=== PATIENT | male | born 1965 | race Caucasian/White ===

== ENCOUNTER 2017-05-25 09:49 | Observation (INO) | payer OTHER ==
--- NOTE | 2017-05-25 10:33 | ED PDOC ---
HPI: Chest Pain Time Seen by Provider: 05/25/17 10:02 Chief Complaint (Nursing): Chest Pain Chief Complaint (Provider): Chest pain History Per: Patient History/Exam Limitations: no limitations Onset/Duration Of Symptoms: Hrs Additional Complaint(s): Patient is a 51 y/o male with a past medical history of hypertension, hypercholesterolemia, and coronary artery disease presenting to the emergency department for sudden chest pain with associated shortness of breath, nausea, and dizziness while riding on a bus several hours prior to arrival. Patient believes that he might have also passed out briefly. Denies other complaints. Of note, patient's sister reports that he is not always compliant with his medication, which includes Plavix and Aspirin. PCP: meryl Valencia ([place]) and [facility] Past Medical History Reviewed: Historical Data, Nursing Documentation, Vital Signs Vital Signs: Last Vital Signs Temp 97.6 F 05/25/17 11:56 Pulse 63 05/25/17 11:56 Resp 16 05/25/17 11:56 BP 114/72 05/25/17 11:56 Pulse Ox 100 05/25/17 11:58 - Medical History PMH: CAD, HTN, Hypercholesterolemia - Surgical History Surgical History: No Surg Hx - Family History Family History: States: Unknown Family Hx - Social History Current smoker - smoking cessation education provided: Yes (less than 10 cigarettes per day) Ex-Smoker (has not smoked in the last 12 months): No Alcohol: None Drugs: Denies - Home Medications Home Medications: Ambulatory Orders Medication Instructions Recorded Aspirin [Ecotrin] 81 mg PO DAILY 05/25/17 Clopidogrel [Plavix] 75 mg PO DAILY 05/25/17 HCTZ/Losartan Potassium [Hyzaar 1 tab PO DAILY 05/25/17 12.5 mg-50 mg] Isosorbide Mononitrate ER [Imdur 30 mg PO DAILY 05/25/17 ER] Metoprolol Succinate [Toprol XL] 50 mg PO HS 05/25/17 Naproxen [Naprosyn] 500 mg PO Q12H PRN 05/25/17 Nitroglycerin [Nitrostat] 0.4 mg SL Q5MIN PRN 05/25/17 Simvastatin [Zocor] 40 mg PO HS 05/25/17 - Allergies Allergies/Adverse Reactions: Allergies Allergy/AdvReac Type Severity Reaction Status Date / Time No Known Allergies Allergy Verified 05/25/17 10:02 Review of Systems ROS Statement: Except As Marked, All Systems Reviewed And Found Negative Cardiovascular: Positive for: Chest Pain Respiratory: Positive for: Shortness of Breath Gastrointestinal: Positive for: Nausea Neurological: Positive for: Dizziness Physical Exam - Reviewed Nursing Documentation Reviewed: Yes Vital Signs Reviewed: Yes - Physical Exam Appears: Positive for: Non-toxic, No Acute Distress. Negative for: Well Head Exam: Positive for: ATRAUMATIC, NORMAL INSPECTION, NORMOCEPHALIC Skin: Positive for: Normal Color, Warm, Dry Eye Exam: Positive for: Normal appearance, EOMI, PERRL Neck: Positive for: Normal, Painless ROM, Supple Cardiovascular/Chest: Positive for: Regular Rate, Rhythm. Negative for: Murmur Respiratory: Positive for: Normal Breath Sounds. Negative for: Accessory Muscle Use, Respiratory Distress Gastrointestinal/Abdominal: Positive for: Normal Exam, Soft. Negative for: Tenderness Extremity: Positive for: Normal ROM. Negative for: Pedal Edema Neurologic/Psych: Positive for: Alert, Oriented (x3) - Laboratory Results Result Diagrams: 05/25/17 10:10 05/25/17 10:10 - ECG O2 Sat by Pulse Oximetry: 100 (RA) Pulse Ox Interpretation: Normal Medical Decision Making Medical Decision Making: Time: 10:09 Initial impression: Chest pain, dyspnea. Differential diagnoses include but not limited to acute coronary syndrome, cardiac arrhythmia, pulmonary embolism with associated syncope. Initial plan: EKG Labs Chest X-Ray Aspirin 325 mg PO personnel monitor continued Reevaluation 10:45 Upon re-evaluation, patient has no complaints at this time. Scribe Attestation: Documented by Elif Lugo, acting as a scribe for Isaac Graves MD. Provider Scribe Attestation: All medical record entries made by the Scribe were at my direction and personally dictated by me. I have reviewed the chart and agree that the record accurately reflects my personal performance of the history, physical exam, medical decision making, and the department course for this patient. I have also personally directed, reviewed, and agree with the discharge instructions and disposition. Disposition - Clinical Impression Clinical Impression: Chest pain, Syncope - Patient ED Disposition Is Patient to be Admitted: Yes Discussed With : Willard Zelaya Doctor Will See Patient In The: ED Counseled Patient/Family Regarding: Studies Performed, Diagnosis - Disposition Disposition Time: 11:30 Condition: FAIR - Pt Status Changed To: Hospital Disposition Of: Observation - POA Present On Arrival: None Core Measure Indicators: Chest Pain
[2017-05-25 10:38] LABS: BASO # 0.1 K/uL (0.0-0.2); BASO % 0.5 % (0.0-2.0); EOS # 0.1 K/uL (0.0-0.7); EOS % 0.3 % (0.0-4.0); HEMATOCRIT 45.1 % (35.0-51.0); LYMPH # 1.2 K/uL (1.0-4.3); LYMPH % 7.2 % (20.0-40.0); MEAN CELL VOLUME 93.5 fl (80.0-94.0); MEAN CORPUSCULAR HEMOGLOBIN 31.9 pg (27.0-31.0); MEAN CORPUSCULAR HGB CONC 34.1 g/dL (33.0-37.0); MEAN PLATELET VOLUME 9.7 fl (7.2-11.7); MONO # 0.9 K/uL (0.0-0.8); MONO % 5.5 % (0.0-10.0); NEUT # 14.5 K/uL (1.8-7.0); NEUT % 86.5 % (50.0-75.0); PLATELET COUNT 251 K/uL (130-400); RED CELL DISTRIBUTION WIDTH 13.1 % (11.5-14.5); WHITE BLOOD COUNT 16.8 K/uL (4.8-10.8)
[2017-05-25 10:52] LABS: BLOOD UREA NITROGEN 21 mg/dl (9-20); CALCIUM 9.8 mg/dL (8.4-10.2); CARBON DIOXIDE 25 mmol/L (22-30); CHLORIDE 101 mmol/L (98-107); GFR AFRICAN-AMERICAN > 60; GLUCOSE,RANDOM 112 mg/dL (75-110); PARTIAL THROMBOPLASTIN TIME 25.6 Seconds (25.6-37.1); POTASSIUM 3.8 MMOL/L (3.6-5.0); SODIUM 139 mmol/l (132-148)
--- NOTE | 2017-05-25 12:30 | RAD ---
PROCEDURE: CHEST RADIOGRAPH, 1 VIEW HISTORY: Chest pain. COMPARISON: None available. FINDINGS: LUNGS: Clear. PLEURA: No pneumothorax or pleural fluid seen. CARDIOVASCULAR: No radiographic findings to suggest acute or significant cardiovascular disease. OSSEOUS STRUCTURES: No significant abnormalities. VISUALIZED UPPER ABDOMEN: Normal. OTHER FINDINGS: None. IMPRESSION: No active disease.
[2017-05-25 14:07] LABS: EOSINOPHIL 1 % (0-7); NEUTROPHIL 81 % (42-75); TOTAL CELLS COUNTED 100
[2017-05-25 16:12] LABS: ABG ALLEN TEST YES; ARTERIAL BLOOD GAS HCO3 29.5 mmol/L (21-28); ARTERIAL BLOOD GAS O2 CAPACITY 21.8 mL/dL (16-24); ARTERIAL BLOOD GAS O2 CONTENT 21.6 ML/dL (15-23); ARTERIAL BLOOD GAS PH 7.49 (7.35-7.45); ARTERIAL BLOOD GAS PO2 100 mm/Hg (80-100); ARTERIAL BLOOD HGB O2 SAT 95.3 % (95.0-98.0); CARBOXYHEMOGLOBIN 1.7 % (0.5-1.5); HHB 1.1 % (0.0-5.0); METHEMOGLOBIN 1.9 % (0.0-3.0)
[2017-05-25] MEDS: HCTZ/Losartan 12.5/50 Tab PO SCH (17:35)
[2017-05-25] MEDS: Enoxaparin 40 mg Syringe SC SCH (17:37)
[2017-05-25] MEDS ORDERED: Metoprolol Succinate 50 mg XL Tab PO SCH (22:00)
--- NOTE | 2017-05-25 22:38 | CT ---
EXAM: CT Chest Without Intravenous Contrast CLINICAL HISTORY: 51 years old, male; Pain and signs and symptoms; Shortness of breath; Chest pain; Type not specified; Additional info: SOB, wt. Loss, smoking HX TECHNIQUE: Axial computed tomography images of the chest without intravenous contrast. All CT scans at this facility use one or more dose reduction techniques, viz.: automated exposure control; ma/kV adjustment per patient size (including targeted exams where dose is matched to indication; i.e. head); or iterative reconstruction technique. Coronal and sagittal reformatted images were created and reviewed. COMPARISON: No relevant prior studies available. FINDINGS: Limitations: Lack of intravenous contrast. Lungs: Minimal atelectasis/scarring. No consolidation. Few subpleural nodules and/or scarring, up to 0.3 cm. Pleural space: No pneumothorax. No significant effusion. Heart: No cardiomegaly. No significant pericardial effusion. Bones/joints: Mild degenerative changes of spine. No acute fracture. Soft tissues: Unremarkable. Vasculature: Unremarkable. No aneurysm. Lymph nodes: No pathologically enlarged lymph nodes. IMPRESSION: 1. Pulmonary nodules. For low-risk patients, no follow-up is necessary. For high-risk patients (smoking history or other known risk factors) an optional CT at 12 months could be performed.
[2017-05-26 07:05] LABS: HEMATOCRIT 42.7 % (35.0-51.0); MEAN CELL VOLUME 93.7 fl (80.0-94.0); MEAN CORPUSCULAR HEMOGLOBIN 31.7 pg (27.0-31.0); MEAN CORPUSCULAR HGB CONC 33.8 g/dL (33.0-37.0); RED CELL DISTRIBUTION WIDTH 13.1 % (11.5-14.5); WHITE BLOOD COUNT 9.7 K/uL (4.8-10.8)
[2017-05-26 07:09] LABS: RBC URINE 3 /hpf (0-3); URINE BILIRUBIN NEGATIVE (NEGATIVE); URINE BLOOD NEGATIVE (NEGATIVE); URINE COLOR YELLOW (YELLOW); URINE GLUCOSE (UA) NEG (Normal); URINE KETONE NEGATIVE (NEGATIVE); URINE LEUKOCYTE ESTERASE NEG Leu/uL (Negative); URINE PROTEIN NEGATIVE (NEGATIVE); URINE UROBILINOGEN 0.2-1.0 mg/dL (0.2-1.0); WBC URINE 1 /hpf (0-5)
[2017-05-26 07:30] LABS: ALB/GLOB RATIO 1.6 (1.0-2.1); ALKALINE PHOSPHATASE 95 U/L (38-126); ALT/SGPT 22 U/L (21-72); AST/SGOT 17 U/L (17-59); BILIRUBIN,TOTAL 0.4 mg/dl (0.2-1.3); BLOOD UREA NITROGEN 22 mg/dl (9-20); CALCIUM 9.1 mg/dL (8.4-10.2); CARBON DIOXIDE 25 mmol/L (22-30); CHLORIDE 102 mmol/L (98-107); CHOLESTEROL 150 mg/dL (0-199); GFR AFRICAN-AMERICAN > 60; GLUCOSE,RANDOM 134 mg/dL (75-110); POTASSIUM 3.5 MMOL/L (3.6-5.0); SODIUM 139 mmol/l (132-148); TOTAL PROTEIN 6.9 G/DL (6.3-8.2)
[2017-05-26 07:54] LABS: THYROID STIMULATING HORMONE 1.11 mIU/ML (0.46-4.68)
--- NOTE | 2017-05-26 08:44 | CARD ---
APPROVED REPORT EKG Measurement Heart [id number] <Conclusion> Normal sinus rhythm Normal ECG
[2017-05-26] MEDS: HCTZ/Losartan 12.5/50 Tab PO SCH (09:03)
[2017-05-26] MEDS: Enoxaparin 40 mg Syringe SC SCH (09:03)
--- NOTE | 2017-05-26 09:39 | CP.PCM.HP ---
History of Present Illness - History of Present Illness History of Present Illness: This is a 51 y/o male with hx of CAD HTN hyperlipidemia non compliant with meds ,was admitted yesterday for sudden onset of chest pain. Claims that chest pain started few hours prior to ER visit while in a bus ride. Claims that there was SOB palpitation and possibly passed out in few seconds while in pain. Pain persisted hence sought medical attention. Initial troponin was negative. Past medical Hx CAD HTN hyperlipidemia Noncompliant with meds he was n plavix antiHTN and ASA Present on Admission - Present on Admission Any Indicators Present on Admission: No History of DVT/PE: No History of Uncontrolled Diabetes: No Urinary Catheter: No Decubitus Ulcer Present: No Review of Systems - Cardiovascular Cardiovascular: Chest Pain Past Patient History - Past Medical History & Family History Past Medical History?: Yes - Past Social History Smoking Status: Current Some Days Smoker - CARDIAC Hx Hypercholesterolemia: Yes Hx Hypertension: Yes - PULMONARY Hx Respiratory Disorders: No - NEUROLOGICAL Hx Neurological Disorder: No - HEENT Hx HEENT Problems: No Other/Comment: wears glasses - RENAL Hx Chronic Kidney Disease: No - ENDOCRINE/METABOLIC Hx Endocrine Disorders: No - HEMATOLOGICAL/ONCOLOGICAL Hx Blood Disorders: No - INTEGUMENTARY Hx Dermatological Problems: No - MUSCULOSKELETAL/RHEUMATOLOGICAL Hx Musculoskeletal Disorders: No Hx Falls: No - GASTROINTESTINAL Hx Gastrointestinal Disorders: Yes Hx Ulcer: Yes Other/Comment: gastric ulcer with surgery - GENITOURINARY/GYNECOLOGICAL Hx Genitourinary Disorders: No - PSYCHIATRIC Hx Psychophysiologic Disorder: No Hx Substance Use: No - SURGICAL HISTORY Hx Surgeries: Yes Hx Cardiac Catheterization: Yes Other/Comment: abdominal sx - ulcer cardiac cath no stents - ANESTHESIA Hx Anesthesia: Yes Hx Anesthesia Reactions: No Hx Malignant Hyperthermia: No Has any member of the family had a problem w/ anesthesia?: No Meds Allergies/Adverse Reactions: Allergies Allergy/AdvReac Type Severity Reaction Status Date / Time No Known Allergies Allergy Verified 05/25/17 10:02 Physical Exam - Head Exam Head Exam: NORMAL INSPECTION - Eye Exam Eye Exam: Normal appearance - ENT Exam ENT Exam: Mucous Membranes Moist - Respiratory Exam Respiratory Exam: NORMAL BREATHING PATTERN - Cardiovascular Exam Cardiovascular Exam: REGULAR RHYTHM - GI/Abdominal Exam GI & Abdominal Exam: Normal Bowel Sounds - Neurological Exam Neurological exam: Alert, CN II-XII Intact Results - Vital Signs Recent Vital Signs: Last Vital Signs Temp 98.0 F 05/26/17 07:45 Pulse 64 05/26/17 07:45 Resp 18 05/26/17 07:45 BP 112/67 05/26/17 07:45 Pulse Ox 96 05/26/17 07:45 - Labs Result Diagrams: 05/26/17 06:00 05/26/17 06:00 Labs: Laboratory Results - last 24 hr 05/25/17 05/25/17 05/25/17 16:00 16:35 22:49 WBC RBC Hgb Hct MCV MCH MCHC RDW Plt Count pCO2 39 pO2 100 HCO3 29.5 H ABG pH 7.49 H ABG Total CO2 30.9 H ABG O2 Saturation 98.9 H ABG O2 Content 21.6 ABG Base Excess 5.9 H ABG Hemoglobin 16.1 ABG Carboxyhemoglobin 1.7 H POC ABG HHb (Measured) 1.1 ABG Methemoglobin 1.9 ABG O2 Capacity 21.8 Mo Test Yes A-a O2 Difference 1.0 Hgb O2 Saturation 95.3 FiO2 21.0 Sodium Potassium Chloride Carbon Dioxide Anion Gap BUN Creatinine Est GFR ( Amer) Est GFR (Non-Af Amer) Random Glucose Calcium Total Bilirubin AST ALT Alkaline Phosphatase Troponin I < 0.0120 < 0.0120 Total Protein Albumin Globulin Albumin/Globulin Ratio Triglycerides Cholesterol LDL Cholesterol Direct HDL Cholesterol TSH 3rd Generation 05/26/17 05/26/17 06:00 06:00 WBC 9.7 RBC 4.56 Hgb 14.4 Hct 42.7 MCV 93.7 MCH 31.7 H MCHC 33.8 RDW 13.1 Plt Count 245 pCO2 pO2 HCO3 ABG pH ABG Total CO2 ABG O2 Saturation ABG O2 Content ABG Base Excess ABG Hemoglobin ABG Carboxyhemoglobin POC ABG HHb (Measured) ABG Methemoglobin ABG O2 Capacity Mo Test A-a O2 Difference Hgb O2 Saturation FiO2 Sodium 139 Potassium 3.5 L Chloride 102 Carbon Dioxide 25 Anion Gap 16 BUN 22 H Creatinine 0.8 Est GFR ( Amer) > 60 Est GFR (Non-Af Amer) > 60 Random Glucose 134 H Calcium 9.1 Total Bilirubin 0.4 AST 17 ALT 22 Alkaline Phosphatase 95 Troponin I Total Protein 6.9 Albumin 4.2 Globulin 2.7 Albumin/Globulin Ratio 1.6 Triglycerides 140 Cholesterol 150 LDL Cholesterol Direct 83 HDL Cholesterol 43 TSH 3rd Generation 1.11 Assessment & Plan (1) Chest pain Status: Acute (2) CAD (coronary artery disease) Status: Acute (3) Hypertension Status: Acute - Assessment and Plan (Free Text) Plan: cont meds follow up troponin if al negactive will Dc patient and advised follow up with PMD.
--- NOTE | 2017-05-26 10:22 | CARD ---
APPROVED REPORT EXAM: Two-dimensional and M-mode echocardiogram with Doppler and color Doppler. Other Information Quality : GoodRhythm : NSR INDICATION Chest Pain 2D DIMENSIONS IVSd1.29 (0.7-1.1cm)LVDd4.51 (3.9-5.9cm) LVOT Diameter2.39 (1.8-2.4cm)PWd1.02 (0.7-1.1cm) IVSs1.51 (0.8-1.2cm)LVDs3.25 (2.5-4.0cm) FS (%) 27.9 %PWs1.30 (0.8-1.2cm) M-Mode DIMENSIONS Left Atrium (MM)4.38 (2.5-4.0cm)IVSd1.32 (0.7-1.1cm) Aortic Root3.06 (2.2-3.7cm)LVDd5.06 (4.0-5.6cm) Aortic Cusp Exc.2.32 (1.5-2.0cm)PWd1.26 (0.7-1.1cm) IVSs1.53 cmFS (%) 34 % LVDs3.35 (2.0-3.8cm)PWs1.74 cm Mitral Valve MV E Lyvjwfoe51.9cm/sMV DECEL [id number] A Xobgqxfx17.2cm/s MV BWS56tnS/A ratio1.2MVA (PHT)3.70cm2 TDI Lateral E' Peak V11.24cm/sMedial E' Peak V7.17cm/sE/Lateral E'3.9 E/Medial E'6.1 Pulmonary Valve PV Peak Tchdygpq006.9cm/s Tricuspid Valve TR Peak Elqucpvy345eh/sRAP [id number] Peak Gr.16mmHg [id number] LEFT VENTRICLE The left ventricle is normal size. There is mild concentric left ventricular hypertrophy. Left ventricle systolic function is normal. The Ejection Fraction is 65-70%. There is normal LV segmental wall motion. Transmitral Doppler flow pattern is Grade I-abnormal relaxation pattern. RIGHT VENTRICLE The right ventricle is normal size. There is normal right ventricular wall thickness. The right ventricular systolic function is normal. ATRIA The left atrium size is normal. The right atrium size is normal. AORTIC VALVE The aortic valve is normal in structure and function. No aortic regurgitation is present. There is no aortic valvular stenosis. MITRAL VALVE The mitral valve is normal in structure and function. There is no evidence of mitral valve prolapse. There is no mitral valve stenosis. There is no mitral valve regurgitation noted. TRICUSPID VALVE The tricuspid valve is normal in structure. There is mild tricuspid regurgitation. Right ventricular systolic pressure is estimated at 26 mmHg. There is no pulmonary hypertension. PULMONIC VALVE The pulmonary valve is normal in structure and function. There is no pulmonic valvular regurgitation. GREAT VESSELS The aortic root is normal in size. The IVC is normal in size and collapses >50% with inspiration. PERICARDIAL EFFUSION The pericardium appears normal. <Conclusion> The left ventricle is normal size. There is mild concentric left ventricular hypertrophy. There is normal LV segmental wall motion. Left ventricle systolic function is normal. The Ejection Fraction is 65-70%. Transmitral Doppler flow pattern is Grade I-abnormal relaxation pattern.
[2017-05-26] MEDS ORDERED: Potassium Chloride 20 mEq ER Tab PO ONE (13:58)
[2017-05-26 16:27] VITALS: BP 112/61; PULSE 67; RESP 14; TEMP 98; O2SAT 96
--- NOTE | 2017-05-26 19:43 | CON ---
CARDIOLOGY CONSULTATION DATE: REASON FOR CONSULTATION: Dizziness and diaphoresis. HISTORY OF PRESENT ILLNESS: The patient is a 51-year-old Italian male who has history of hypertension presented because of recurrent episodes of dizziness and diaphoresis as well as chest tightness. The patient is being followed by policy issue clerk by the name of Dr. Valencia in [place]. The patient denies any prior cardiac history. The patient is currently chest pain free. SOCIAL HISTORY: The patient is a smoker. Currently, he switched to electronic cigarette. He is . Lives with his . MEDICATIONS: Aspirin 81 mg once a day, Hyzaar one tablet once a day, Imdur 30 mg once a day, Lovenox 20 mg subcutaneous once a day, Plavix 75 mg once a day, Toprol-XL 50 mg once a day. REVIEW OF SYSTEMS: No fever or chills. No vomiting or diarrhea. PHYSICAL EXAMINATION: GENERAL: The patient is a middle age male, who does not appear to be in any distress. VITAL SIGNS: Blood pressure 108/59, heart rate 61, temperature 98.3, respirations 18. HEENT: Normocephalic. NECK: No JVD. CHEST: Clear. HEART: Heart sounds regular. ABDOMEN: Soft. EXTREMITIES: No edema. LABORATORIES: SMA-7; sodium 139, potassium 4.5, chloride 102, CO2 of 25, glucose 134, BUN 22, and creatinine 0.8. Three sets of troponins are negative. Lipid profile is within normal limits. PT, PTT, and D-dimer are within normal limits. Hemoglobin, hematocrit, 14.4 and 42.7, white count 9.2, and platelet count 145,000. Echocardiographic study revealed mild concentric LVH with normal ejection fraction and reduced diastolic compliance. EKG revealed normal sinus rhythm. ASSESSMENT: 1. Chest pain, myocardial infarction ruled out. 2. Hypertension. 3. Mild hypokalemia. RECOMMENDATIONS: Continue current aspirin 81 mg once a day, Hyzaar 12.5-50 mg daily, Imdur 30 mg once a day, Lovenox 20 mg once a day, Plavix 75 mg once a day, Toprol-XL 50 mg once a day. I will administer K-Dur 20 mEq p.o. now. The patient can be discharged for followup with his policy issue clerk, Dr. Valencia for outpatient stress test. Ho Lynch MD [facility] # [id number]
== END 2017-05-26 17:00 | disposition home or self-care (01) ==
LOC: H.ER 09:49 → H.ERHOLD 11:30 → H.TEL 13:12
PROVIDERS: ADMIT Family Medicine; ATTEND Family Medicine
DX: R07.9 Chest pain, unspecified (principal); E78.00 Pure hypercholesterolemia, unspecified; E78.5 Hyperlipidemia, unspecified; E87.6 Hypokalemia; Z91.14 Patient's other noncompliance with medication regimen; I10 Essential (primary) hypertension; I25.10 Atherosclerotic heart disease of native coronary artery without angina pectoris; F17.210 Nicotine dependence, cigarettes, uncomplicated
CPT/HCPCS: 36415; 71010; 71250; 80048; 80053; 80061; 81003; 82803; 82948; 83880; 84443; 84484; 85025; 85027; 85378; 85610; 85730; 93005; 93306; 99285; G0378; J1650

== ENCOUNTER 2017-06-15 12:50 | Emergency (ER) | payer OTHER ==
[2017-06-15 13:28] VITALS: BP 125/74; PULSE 63; RESP 16; TEMP 97.8
[2017-06-15] MEDS ORDERED: Alum-Mag Hydrox-Simethicone Susp (30 mL) PO STA (14:46)
--- NOTE | 2017-06-15 14:49 | ED PDOC ---
HPI: Back Time Seen by Provider: 06/15/17 13:44 Chief Complaint (Nursing): Back Pain Chief Complaint (Provider): Lower back pain History Per: Patient History/Exam Limitations: no limitations Onset/Duration Of Symptoms: Hrs Current Symptoms Are (Timing): Still Present Additional Complaint(s): Patient is a 51 y/o male with a past medical history of hypertension presenting to the emergency department for acute on chronic left lower non-radiating back pain. Notes taking Motrin last night which caused stomach irritation and provided no significant relief. Denies trauma or other complaints. PCP: none provided. Past Medical History Reviewed: Historical Data Vital Signs: Last Vital Signs Temp 97.8 F 06/15/17 13:25 Pulse 63 06/15/17 13:25 Resp 16 06/15/17 13:25 BP 125/74 06/15/17 13:25 Pulse Ox 198 H 06/15/17 13:25 - Medical History PMH: CAD, HTN, Hypercholesterolemia, Hyperlipidemia Denies: Chronic Kidney Disease - Family History Family History: States: Unknown Family Hx - Home Medications Home Medications: Ambulatory Orders Medication Instructions Recorded Aspirin [Ecotrin] 81 mg PO DAILY 05/25/17 Clopidogrel [Plavix] 75 mg PO DAILY 05/25/17 HCTZ/Losartan Potassium [Hyzaar 1 tab PO DAILY 05/25/17 12.5 mg-50 mg] Isosorbide Mononitrate ER [Imdur 30 mg PO DAILY 05/25/17 ER] Metoprolol Succinate [Toprol XL] 50 mg PO HS 05/25/17 Naproxen [Naprosyn] 500 mg PO Q12H PRN 05/25/17 Nitroglycerin [Nitrostat] 0.4 mg SL Q5MIN PRN 05/25/17 Simvastatin [Zocor] 40 mg PO HS 05/25/17 Acetaminophen [Tylenol 325mg tab] 3 tab PO Q6H #60 tab 06/15/17 diaZEpam [Valium] 5 mg PO Q8H #15 tab 06/15/17 - Allergies Allergies/Adverse Reactions: Allergies Allergy/AdvReac Type Severity Reaction Status Date / Time No Known Allergies Allergy Verified 06/15/17 13:25 Review of Systems ROS Statement: Except As Marked, All Systems Reviewed And Found Negative Musculoskeletal: Positive for: Back Pain (left, lower, non-radiating, acute on chronic) Physical Exam - Reviewed Nursing Documentation Reviewed: Yes Vital Signs Reviewed: Yes - Physical Exam Appears: Positive for: Well, Non-toxic, No Acute Distress Head Exam: Positive for: ATRAUMATIC, NORMAL INSPECTION, NORMOCEPHALIC Skin: Positive for: Normal Color, Warm, Dry Eye Exam: Positive for: Normal appearance ENT: Positive for: Normal ENT Inspection Neck: Positive for: Normal Respiratory: Negative for: Respiratory Distress Back: Positive for: Normal Inspection, Decreased ROM, Muscle Spasm. Negative for: L CVA Tenderness, R CVA Tenderness, Vertebral Tenderness Extremity: Positive for: Normal ROM Neurologic/Psych: Positive for: Alert, Oriented (x3) - ECG O2 Sat by Pulse Oximetry: 98 (RA) Pulse Ox Interpretation: Normal Interpretation Of Abnormal: Time: 14:46 Initial impression: Left lower back pain Initial plan: Maalox 30 mL PO Valium 5 mg PO Toradol 60 mg IM Reevaluation Scribe Attestation: Documented by Elif Lugo, acting as a scribe for NISREEN Singh. Provider Scribe Attestation: All medical record entries made by the Scribe were at my direction and personally dictated by me. I have reviewed the chart and agree that the record accurately reflects my personal performance of the history, physical exam, medical decision making, and the department course for this patient. I have also personally directed, reviewed, and agree with the discharge instructions and disposition. Disposition - Clinical Impression Clinical Impression: Back pain - Patient ED Disposition Is Patient to be Admitted: No Counseled Patient/Family Regarding: Diagnosis, Need For Followup, Rx Given - Disposition Disposition: Routine/Home Disposition Time: 15:17 Condition: GOOD Prescriptions: Acetaminophen [Tylenol 325mg tab] 3 tab PO Q6H #60 tab diaZEpam [Valium] 5 mg PO Q8H #15 tab Instructions: Back Pain (ED) Forms: [employer] ([place])
[2017-06-15] MEDS ORDERED: Alum-Mag Hydrox-Simethicone Susp (30 mL) ONE (14:53)
[2017-06-15 15:13] VITALS: O2SAT 98
== END 2017-06-15 15:23 | disposition home or self-care (01) ==
LOC: H.ER 12:50
DX: M54.9 Dorsalgia, unspecified (principal)
CPT/HCPCS: 96372; 99281; J1885

== ENCOUNTER 2017-06-19 07:07 | Emergency (ER) | payer OTHER ==
[2017-06-19 07:13] VITALS: BP 150/82; PULSE 74; RESP 18; TEMP 98.5; O2SAT 99
[2017-06-19 07:15] VITALS: BMI 25.8
[2017-06-19] MEDS ORDERED: Sodium Chloride 0.9% 1,000 ML IV STA (07:40)
[2017-06-19 08:11] LABS: BASO # 0.1 K/uL (0.0-0.2); BASO % 0.6 % (0.0-2.0); EOS # 0.1 K/uL (0.0-0.7); EOS % 1.2 % (0.0-4.0); HEMATOCRIT 42.5 % (35.0-51.0); LYMPH # 1.4 K/uL (1.0-4.3); LYMPH % 11.6 % (20.0-40.0); MEAN CELL VOLUME 92.8 fl (80.0-94.0); MEAN CORPUSCULAR HEMOGLOBIN 31.3 pg (27.0-31.0); MEAN CORPUSCULAR HGB CONC 33.7 g/dL (33.0-37.0); MEAN PLATELET VOLUME 9.6 fl (7.2-11.7); MONO # 0.8 K/uL (0.0-0.8); MONO % 7.1 % (0.0-10.0); NEUT # 9.4 K/uL (1.8-7.0); NEUT % 79.5 % (50.0-75.0); RED CELL DISTRIBUTION WIDTH 13.1 % (11.5-14.5); WHITE BLOOD COUNT 11.9 K/uL (4.8-10.8)
[2017-06-19 08:27] LABS: BLOOD UREA NITROGEN 17 mg/dl (9-20); CALCIUM 9.5 mg/dL (8.4-10.2); CARBON DIOXIDE 23 mmol/L (22-30); CHLORIDE 104 mmol/L (98-107); GFR AFRICAN-AMERICAN > 60; GLUCOSE,RANDOM 129 mg/dL (75-110); SODIUM 143 mmol/l (132-148)
--- NOTE | 2017-06-19 08:35 | ED PDOC ---
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 As per , the patient was seen here in the ED last Tuesday and was discharged with prescriptions for tylenol and valium. She reports the medications offered no relief of the patients pain. The patient report that initially the pain was only in his back but now it is radiating down his left leg and is worse with movement. He states that after his first ED visit he did not follow up with his PMD. Denies fever, numbness of buttocks, numbness in legs. - Risk Factors AAA Risk Factors: Pos: Older Than 49 Years Of Age, Hypertension Past Medical History Reviewed: Historical Data, Nursing Documentation, Vital Signs Vital Signs: Last Vital Signs Temp 98.5 F 06/19/17 07:13 Pulse 74 06/19/17 07:13 Resp 18 06/19/17 07:13 BP 150/82 06/19/17 07:13 Pulse Ox 99 06/19/17 07:13 - Medical History PMH: CAD, HTN, Hypercholesterolemia, Hyperlipidemia Denies: Chronic Kidney Disease - Surgical History Other surgeries: Stomach Surgery - Family History Family History: States: Unknown Family Hx - Living Arrangements Living Arrangements: With Family - Social History Current smoker - smoking cessation education provided: Yes Ex-Smoker (has not smoked in the last 12 months): No Alcohol: None Drugs: Denies - Home Medications Home Medications: Ambulatory Orders Medication Instructions Recorded Aspirin [Ecotrin] 81 mg PO DAILY 05/25/17 Clopidogrel [Plavix] 75 mg PO DAILY 05/25/17 HCTZ/Losartan Potassium [Hyzaar 1 tab PO DAILY 05/25/17 12.5 mg-50 mg] Isosorbide Mononitrate ER [Imdur 30 mg PO DAILY 05/25/17 ER] Metoprolol Succinate [Toprol XL] 50 mg PO HS 05/25/17 Naproxen [Naprosyn] 500 mg PO Q12H PRN 05/25/17 Nitroglycerin [Nitrostat] 0.4 mg SL Q5MIN PRN 05/25/17 Simvastatin [Zocor] 40 mg PO HS 05/25/17 Acetaminophen [Tylenol 325mg tab] 3 tab PO Q6H #60 tab 06/15/17 diaZEpam [Valium] 5 mg PO Q8H #15 tab 06/15/17 Ketorolac Tromethamine [Toradol] 10 mg PO Q6H PRN #19 tab 06/19/17 Nortriptyline HCl 25 mg PO HS #14 capsule 06/19/17 traMADol [Ultram] 50 mg PO TID PRN #15 tab 06/19/17 - Allergies Allergies/Adverse Reactions: Allergies Allergy/AdvReac Type Severity Reaction Status Date / Time No Known Allergies Allergy Verified 06/15/17 13:25 Review of Systems ROS Statement: Except As Marked, All Systems Reviewed And Found Negative Constitutional: Negative for: Fever, Chills Musculoskeletal: Positive for: Back Pain, Leg Pain (left leg pain) Neurological: Negative for: Numbness (no numbness of right leg or buttocks) Physical Exam - Physical Exam Appears: Positive for: Non-toxic, No Acute Distress Head Exam: Positive for: ATRAUMATIC, NORMAL INSPECTION, NORMOCEPHALIC Skin: Positive for: Normal Color, Warm, Dry. Negative for: Rash Eye Exam: Positive for: Normal appearance, EOMI, PERRL. Negative for: Nystagmus Neck: Positive for: Normal, Painless ROM, Supple Cardiovascular/Chest: Positive for: Regular Rate, Rhythm, Chest Non Tender. Negative for: Tachycardia Respiratory: Positive for: Normal Breath Sounds. Negative for: Rales, Rhonchi, Wheezing, Respiratory Distress Gastrointestinal/Abdominal: Positive for: Normal Exam, Bowel Sounds, Soft. Negative for: Tenderness, Guarding, Rebound Back: Positive for: Normal Inspection. Negative for: L CVA Tenderness, R CVA Tenderness Extremity: Positive for: Normal ROM (decreased ROM of left leg secondary to pain ), Other (motor strength 3/5 of right leg; Motor strength 5/5 left leg; Straight leg rays (+).). Negative for: Tenderness, Pedal Edema, Calf Tenderness , Deformity Neurologic/Psych: Positive for: Alert, Oriented, Gait - Laboratory Results Result Diagrams: 06/19/17 07:42 06/19/17 07:42 - ECG O2 Sat by Pulse Oximetry: 99 (RA) Pulse Ox Interpretation: Normal Medical Decision Making Medical Decision Makin Initial Impression 51 y/o male presenting with lumbar radiculopathy Initial Plan: * CT Lumbar Spine w/o Contrast * BMP * Udip * CBC * Sed Rate * Ativan 1mg IVP * Morphine 2mg IV * NS 1000ml IV 1000mls/hr * Pepcid 20mg IVP * Toradol 30mg IVP * Reevaluation 09 CT Lumbar Spine w/o Contrast Signed by: Anastasia Hagan MD. Indication: severe back pain with radiation to left leg Comparison: None available Technique: Noncontrast axial images of the lumbar spine were provided. Sagittal and coronal reformatted images were generated and reviewed. Findings: Multilevel degenerative changes including prominent osteophyte formation. Vertebral body heights appear within normal limits. 8 mm sclerotic focus, L4 left-sided vertebral body/pedicle, possibly bone island. Posterior disc bulge at L4-L5. Alignment appears satisfactory. No acute fracture or subluxation identified. Paraspinal soft tissues appear unremarkable. Limited visualization of the intra-abdominal and intrapelvic contents appear unremarkable. Impression: * No acute fracture or sublaxation identified * Multilevel degenerative changes * Posterior disc bulge L4 - L5 1054 Patient is currently feeling better and asked about getting stronger medication for pain which he will be prescribed. Patient made aware of CT results and instructed to follow up with PMD for physical therapy. Patient is medically stable, requires no further treatment in the ED and will be discharged home. Scribe Attestation Documented by Taniya العراقي acting as a scribe for Bambi Navarro MD. Provider Attestation All medical record entries made by the Scribe were at my direction and personally dictated by me. I have reviewed the chart and agree that the record accurately reflects my personal performance of the history, physical exam, medical decision making, and the department course for this patient. I have also personally directed, reviewed, and agree with the discharge instructions and disposition. Disposition - Clinical Impression Clinical Impression: Lumbar radicular pain - Patient ED Disposition Is Patient to be Admitted: No Doctor Will See Patient In The: Office Counseled Patient/Family Regarding: Studies Performed, Diagnosis, Need For Followup - Disposition Disposition: Routine/Home Disposition Time: 10:40 Condition: IMPROVED Additional Instructions: Continue Tylenol and Valium as prescribed by the doctor on your 06/15/2017 visit to the emergency room. Thank you. Prescriptions: Ketorolac Tromethamine [Toradol] 10 mg PO Q6H PRN #19 tab PRN Reason: Pain, Moderate (4-7) Nortriptyline HCl 25 mg PO HS #14 capsule traMADol [Ultram] 50 mg PO TID PRN #15 tab PRN Reason: Pain, Severe (8-10) Instructions: Lumbar Radiculopathy (ED), Lumbar Disc Herniation (ED) Forms: [employer] (Welsh) - POA Present On Arrival: None
--- NOTE | 2017-06-19 09:16 | CT ---
CT lumbar spine without IV contrast Indication: severe back pain with radiation to left leg Comparison: None available Technique: Noncontrast axial images of the lumbar spine were provided. Sagittal and coronal reformatted images were generated and reviewed. This CT exam was performed using 1 or more of the falling dose reduction techniques: Automated exposure control, adjustment of the MAA and/or kV according to patient size, and/or use of iterative reconstruction technique. Total exam DLP: 1060.94 MGy-cm Findings: Multilevel degenerative changes including prominent osteophyte formation. Vertebral body heights appear within normal limits. 8 mm sclerotic focus, L4 left-sided vertebral body/pedicle, possibly bone island. Posterior disc bulge at L4-L5. Alignment appears satisfactory. No acute fracture or subluxation identified. Paraspinal soft tissues appear unremarkable. Limited visualization of the intra-abdominal and intrapelvic contents appear unremarkable. Impression: No acute fracture or subluxation identified. Multilevel degenerative changes. Posterior disc bulge L4-L5. Suggest further evaluation with MRI if indicated.
== END 2017-06-19 11:45 | disposition home or self-care (01) ==
LOC: H.ER 07:07
DX: M54.10 Radiculopathy, site unspecified (principal); I10 Essential (primary) hypertension; M51.27 Other intervertebral disc displacement, lumbosacral region; I25.10 Atherosclerotic heart disease of native coronary artery without angina pectoris
CPT/HCPCS: 72131; 80048; 85025; 85651; 96374; 96375; 96376; 99283; J1885; J2060; J2270; J7040

== ENCOUNTER 2017-06-19 13:18 | Inpatient (IN) | payer OTHER ==
[2017-06-19 13:18] VITALS: BMI 25.8
[2017-06-19] MEDS ORDERED: HYDROmorphone 1 mg/ml ISec IVP STA ×2 (13:45→23:05)
[2017-06-19] MEDS ORDERED: Sodium Chloride 0.9% 1,000 ML IV STA (13:46)
[2017-06-19] MEDS ORDERED: HYDROmorphone 0.5 mg/0.5 ml ISec ONE (13:47)
--- NOTE | 2017-06-19 14:02 | ED PDOC ---
HPI: Back Time Seen by Provider: 06/19/17 13:33 Chief Complaint (Nursing): Back Pain Chief Complaint (Provider): Back Pain History Per: Patient History/Exam Limitations: no limitations Onset/Duration Of Symptoms: Hrs Current Symptoms Are (Timing): Still Present Quality Of Discomfort: "Pain" Severity: Severe Pain Scale Rating Of: 8 Previous Symptoms: Back Pain Exacerbating Factor(s): Movement Additional Complaint(s): Scarlett haynes, marychuy 51 year old male, with a past medical history of hypertension and coronary artery disease presents to the ED for back pain that radiates down his left leg x4 days. The patient was seen in ED earlier today and was treated with pain medication. The patient states that he felt better upon leaving the ED but when he got home the pain returned and so he came back to the ED. - Risk Factors AAA Risk Factors: Pos: Older Than 49 Years Of Age, Hypertension Past Medical History Reviewed: Historical Data, Nursing Documentation, Vital Signs Vital Signs: Last Vital Signs Temp 98.4 F 06/19/17 13:31 Pulse 68 06/19/17 13:31 Resp 18 06/19/17 13:31 BP 128/82 06/19/17 13:31 Pulse Ox 99 06/19/17 13:31 - Medical History PMH: CAD, HTN, Hypercholesterolemia, Hyperlipidemia Denies: Chronic Kidney Disease - Family History Family History: States: Unknown Family Hx - Home Medications Home Medications: Ambulatory Orders Medication Instructions Recorded Aspirin [Ecotrin] 81 mg PO DAILY 05/25/17 HCTZ/Losartan Potassium [Hyzaar 1 tab PO DAILY 05/25/17 12.5 mg-50 mg] Isosorbide Mononitrate ER [Imdur 30 mg PO DAILY 05/25/17 ER] Metoprolol Succinate [Toprol XL] 50 mg PO HS 05/25/17 Nitroglycerin [Nitrostat] 0.4 mg SL Q5MIN PRN 05/25/17 Simvastatin [Zocor] 40 mg PO HS 05/25/17 Acetaminophen [Tylenol 325mg tab] 3 tab PO Q6H #60 tab 06/15/17 diaZEpam [Valium] 5 mg PO Q8H #15 tab 06/15/17 Ketorolac Tromethamine [Toradol] 10 mg PO Q6H PRN #19 tab 06/19/17 Nortriptyline HCl 25 mg PO HS #14 capsule 06/19/17 traMADol [Ultram] 50 mg PO TID PRN #15 tab 06/19/17 oxyCODONE/Acetaminophen [Percocet 1 ea PO Q4 PRN #30 tab 06/20/17 5/325 mg Tab] Docusate Sodium [Colace] 100 mg PO BID #20 capsule 06/23/17 Tamsulosin HCl [Flomax] 0.4 mg PO DAILY #30 cap.er.24h 06/23/17 - Allergies Allergies/Adverse Reactions: Allergies Allergy/AdvReac Type Severity Reaction Status Date / Time No Known Allergies Allergy Verified 06/19/17 14:35 Review of Systems ROS Statement: Except As Marked, All Systems Reviewed And Found Negative Musculoskeletal: Positive for: Back Pain, Leg Pain (left leg) Physical Exam - Reviewed Nursing Documentation Reviewed: Yes Vital Signs Reviewed: Yes - Physical Exam Appears: Positive for: Non-toxic, No Acute Distress Head Exam: Positive for: ATRAUMATIC, NORMAL INSPECTION, NORMOCEPHALIC Skin: Positive for: Normal Color, Warm, Dry. Negative for: Rash Eye Exam: Positive for: Normal appearance, EOMI, PERRL. Negative for: Nystagmus ENT: Positive for: Normal ENT Inspection Neck: Positive for: Normal, Painless ROM, Supple Cardiovascular/Chest: Positive for: Regular Rate, Rhythm, Chest Non Tender. Negative for: Tachycardia Respiratory: Positive for: Normal Breath Sounds. Negative for: Wheezing, Respiratory Distress Gastrointestinal/Abdominal: Positive for: Normal Exam, Bowel Sounds, Soft. Negative for: Tenderness, Guarding, Rebound Back: Positive for: Normal Inspection. Negative for: L CVA Tenderness, R CVA Tenderness Extremity: Positive for: Other (Motor strength 3/5 left leg, 5/5 right leg. Striaght leg rays (+).). Negative for: Normal ROM (decreased ROM of left leg.) , Deformity, Swelling Neurologic/Psych: Positive for: Alert, Oriented - Laboratory Results Result Diagrams: 06/23/17 05:50 06/23/17 05:50 - ECG O2 Sat by Pulse Oximetry: 99 (RA) Pulse Ox Interpretation: Normal Medical Decision Making Medical Decision Makin Initial Impression: 51 year old male presenting with back pain Initial plan: * Admit 1355 * NS 1000ml IV 1000mls/hr IV * Dilaudid 1mg IVP * Heart Healthy Diet * Ativan 2mg IVP * Reevaluation 1355 Patient will be admit to hospital under Dr. Langley. - Scribe Attestation Documented by Taniya العراقي acting as a scribe for Bambi Navarro MD. Provider Attestation All medical record entries made by the Scribe were at my direction and personally dictated by me. I have reviewed the chart and agree that the record accurately reflects my personal performance of the history, physical exam, medical decision making, and the department course for this patient. I have also personally directed, reviewed, and agree with the discharge instructions and disposition. Disposition - Clinical Impression Clinical Impression: Intractable low back pain - Patient ED Disposition Is Patient to be Admitted: Yes Doctor Will See Patient In The: Hospital - Disposition Disposition: Transfer of Care Disposition Time: 15:30 Condition: STABLE - Pt Status Changed To: Hospital Disposition Of: Observation - POA Present On Arrival: None
--- NOTE | 2017-06-19 17:51 | CP.PCM.HP ---
History of Present Illness - History of Present Illness History of Present Illness: CC: Back pain This is a 51 year old male with a past medical history of hypertension, coronary artery disease with hx of cardiac catheterization, who is presenting to the ED today with the complaint of severe back pain that radiates down his left leg. This pain has been mild but constantly present for months, but began to get much worse 4 days ago. 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 The patient was seen early this morning and was given pain medication and initally left; however when he got home the pain returned and so he came back to the ED. He had a CT of the lumbar spine which noted a disc bulge at L4-L5. He was given Toradol and Dilaudid with moderate relief, although he is still complaining of significant pain. He is able to ambulate. The family noted that he was having shooting pains down the left leg. He previously denied any paresthesias or weakness in his left leg. No hx of saddle anesthesia or urinary or fecal incontinence. History was unable to be taken directly from the patient secondary to lethargy from pain medication. He is to be placed on observation status for control of his pain, with pain management consultation. Present on Admission - Present on Admission Any Indicators Present on Admission: No Review of Systems - Review of Systems Systems not reviewed;Unavailable: Altered Mental Status Past Patient History - Infectious Disease Hx of Infectious Diseases: None - Past Medical History & Family History Past Medical History?: Yes Past Family History: Reviewed and not pertinent - Past Social History Smoking Status: Current Some Days Smoker - CARDIAC Hx Cardiac Disorders: Yes - PULMONARY Hx Respiratory Disorders: No - NEUROLOGICAL Hx Neurological Disorder: No - HEENT Hx HEENT Problems: No Other/Comment: wears glasses - RENAL Hx Chronic Kidney Disease: No - ENDOCRINE/METABOLIC Hx Endocrine Disorders: No - HEMATOLOGICAL/ONCOLOGICAL Hx Blood Disorders: No - INTEGUMENTARY Hx Dermatological Problems: No - MUSCULOSKELETAL/RHEUMATOLOGICAL Hx Musculoskeletal Disorders: No Hx Falls: No - GASTROINTESTINAL Hx Gastrointestinal Disorders: Yes Hx Ulcer: Yes Other/Comment: gastric ulcer with surgery - GENITOURINARY/GYNECOLOGICAL Hx Genitourinary Disorders: No - PSYCHIATRIC Hx Psychophysiologic Disorder: No Hx Substance Use: No - SURGICAL HISTORY Hx Surgeries: Yes Hx Cardiac Catheterization: Yes Other/Comment: abdominal sx - ulcer cardiac cath no stents - ANESTHESIA Hx Anesthesia: Yes Hx Anesthesia Reactions: No Hx Malignant Hyperthermia: No Meds Allergies/Adverse Reactions: Allergies Allergy/AdvReac Type Severity Reaction Status Date / Time No Known Allergies Allergy Verified 06/19/17 14:35 Physical Exam - Additional Findings Additional findings: GENERAL: The patient is a well-developed, well-nourished male, lethargic, in no apparent distress. HEENT: Head is normocephalic and atraumatic. Extraocular muscles are intact. Pupils are equal, round, and reactive to light and accommodation. Nares appeared normal. Mouth is well hydrated and without lesions. Mucous membranes are moist. NECK: Supple. No carotid bruits. No lymphadenopathy or thyromegaly. LUNGS: Clear to auscultation. HEART: Regular rate and rhythm without murmur. ABDOMEN: Soft, nontender, and nondistended. Positive bowel sounds. No hepatosplenomegaly was noted. EXTREMITIES: Tenderness to palpation of the right hip. Without any cyanosis, clubbing, rash, lesions or edema. NEUROLOGIC: Cranial nerves II through XII are grossly intact. PSYCHOSOCIAL: The patient is in a good mood. No signs of depression SKIN: No ulceration or induration present. Results - Vital Signs Recent Vital Signs: Last Vital Signs Temp 98.4 F 06/19/17 15:19 Pulse 68 06/19/17 15:19 Resp 18 06/19/17 15:19 BP 128/82 06/19/17 15:19 Pulse Ox 99 06/19/17 14:15 Assessment & Plan - Assessment and Plan (Free Text) Plan: ASSESSMENT - Intractable back pain from disc herniation and sciatica of the left leg - History of CAD - History of hypertension - Continue Valium 5 mg po q8h PLAN - Observation status - Consultation with pain management - Continue tylenol PRN for mild pain - Toradol 30 mg IV q6h prn for moderate pain - Dilaudid 1 mg IV q4h PRN for severe pain - Flexeril 10 mg po TID PRN for muscle spasms - Continue HCTZ/Losartan and Toprol for htn control - Valium 5 mg po q8h for hx of anxiety - Estimated LOS less than 2 midnights - DVT prophylaxis with Lovenox
[2017-06-19] MEDS: HYDROmorphone 0.5 mg/0.5 ml ISec IVP PRN (20:02)
[2017-06-19] MEDS ORDERED: Pneumococcal 23-Valent Vaccine IM ONE (20:25)
[2017-06-19] MEDS ORDERED: Influenza Vaccine 18yr & older 0.5 ML/45 MCG SYR IM ONE (20:44)
[2017-06-19] MEDS: Metoprolol Succinate 50 mg XL Tab PO SCH (21:06)
[2017-06-19] MEDS ORDERED: HYDROmorphone 0.5 mg/0.5 ml ISec IVP STA (23:19)
[2017-06-20] MEDS: HYDROmorphone 0.5 mg/0.5 ml ISec IVP PRN ×6 (02:39→21:46)
[2017-06-20] MEDS ORDERED: MethylPREDNISolone Depo 40 mg/ml Inj ONE (08:29)
[2017-06-20] MEDS ORDERED: Lidocaine 1% Inj (20ml) ONE (08:29)
[2017-06-20] MEDS ORDERED: Iohexol 300 10 ML ONE (08:29)
[2017-06-20] MEDS: HCTZ/Losartan 12.5/50 Tab PO SCH (08:33)
--- NOTE | 2017-06-20 08:41 | CP.PCM.CON ---
History of Present Illness - History of Present Illness History of Present Illness: 51yM with acute on chronic back pain. His pain is VAS 7-8/10, and is sharp and intermittent. Pain radiates from the back and goes to the left lower leg. His pain is worse with movement and lifting and better with rest. He had this pain for several years, but the pain got worse over the last 10d. He denies weakness and urinary incontinence. He denies having recent back surgery or pain injections. Inciting event was heavy lifting at work. Past Patient History - Infectious Disease Hx of Infectious Diseases: None - Past Medical History & Family History Past Medical History?: Yes - Past Social History Smoking Status: Vaps - CARDIAC Hx Cardiac Disorders: Yes Hx Hypercholesterolemia: Yes Hx Hypertension: Yes - PULMONARY Hx Respiratory Disorders: No - NEUROLOGICAL Hx Neurological Disorder: No - HEENT Hx HEENT Problems: No Other/Comment: wears glasses - RENAL Hx Chronic Kidney Disease: No - ENDOCRINE/METABOLIC Hx Endocrine Disorders: No - HEMATOLOGICAL/ONCOLOGICAL Hx Blood Disorders: No - INTEGUMENTARY Hx Dermatological Problems: No - MUSCULOSKELETAL/RHEUMATOLOGICAL Hx Musculoskeletal Disorders: No Hx Back Pain: Yes Hx Falls: No - GASTROINTESTINAL Hx Gastrointestinal Disorders: Yes Hx Ulcer: Yes Other/Comment: gastric ulcer with surgery - GENITOURINARY/GYNECOLOGICAL Hx Genitourinary Disorders: No - PSYCHIATRIC Hx Psychophysiologic Disorder: No Hx Substance Use: No - SURGICAL HISTORY Hx Surgeries: Yes Hx Cardiac Catheterization: Yes Other/Comment: abdominal sx - ulcer cardiac cath no stents - ANESTHESIA Hx Anesthesia: Yes Hx Anesthesia Reactions: No Hx Malignant Hyperthermia: No Meds Allergies/Adverse Reactions: Allergies Allergy/AdvReac Type Severity Reaction Status Date / Time No Known Allergies Allergy Verified 06/19/17 14:35 - Medications Medications: Current Medications Acetaminophen (Tylenol 325mg Tab) 325 mg PO Q6H PRN PRN Reason: Pain, Mild (1-3) Aspirin (Ecotrin) 81 mg PO DAILY [facility] Atorvastatin Calcium (Lipitor) 20 mg PO HS [facility] Last Admin: 06/19/17 21:07 Dose: 20 mg Cyclobenzaprine HCl (Flexeril) 10 mg PO TID PRN PRN Reason: Muscle spasm Diazepam (Valium) 5 mg PO Q8H [facility] Last Admin: 06/20/17 07:46 Dose: 5 mg Enoxaparin Sodium (Lovenox) 40 mg SC DAILY DIO PRN Reason: Protocol HCTZ/Losartan Potassium (Hyzaar 12.5 Mg-50 Mg) 1 tab PO DAILY [facility] Hydromorphone HCl (Dilaudid) 1 mg IVP Q3 PRN PRN Reason: Pain, severe (8-10) Last Admin: 06/20/17 05:51 Dose: 1 mg Isosorbide Mononitrate (Imdur Er) 30 mg PO DAILY [facility] Ketorolac Tromethamine (Toradol) 30 mg IVP Q6 PRN PRN Reason: Pain, moderate (4-7) Last Admin: 06/20/17 07:57 Dose: 30 mg Metoprolol Succinate (Toprol Xl) 50 mg PO HS [facility] Last Admin: 06/19/17 21:06 Dose: 50 mg Nitroglycerin (Nitrostat Sl Tab) 0.4 mg SL Q5MIN PRN PRN Reason: Chest Pain Nortriptyline HCl (Pamelor) 25 mg PO HS [facility] Last Admin: 06/19/17 21:07 Dose: 25 mg Ondansetron HCl (Zofran Inj) 4 mg IVP Q6 PRN PRN Reason: Nausea/Vomiting Physical Exam - Constitutional Appears: Non-toxic - Back Exam Additional comments: limited ROM, mod lumbar pvb tenderness +SLR LLE at 45 degrees - Neurological Exam Neurological exam: Abnormal Gait Additional comments: DP flex 5/5 bilateral LE, sensation grossly intact Results - Vital Signs Recent Vital Signs: Last Vital Signs Temp 98 F 06/20/17 08:20 Pulse 97 H 06/20/17 08:20 Resp 20 06/20/17 08:20 BP 150/98 H 06/20/17 08:20 Pulse Ox 96 06/20/17 08:20 Assessment & Plan - Assessment and Plan (Free Text) Assessment: Acute on chronic back pain Plan: 1. PT 2. caudal epidural 3. spine consult 4. care as per primary team 5. f/u MRI spine
[2017-06-20] MEDS ORDERED: Bupivacaine HCl 0.25% PF (30 ml) Inj ONE (08:53)
[2017-06-20] MEDS ORDERED: Enoxaparin 40 mg Syringe SC SCH (09:00)
[2017-06-20] MEDS ORDERED: Lidocaine 1% Inj (20ml) IJ ONE (09:02)
[2017-06-20] MEDS ORDERED: Iohexol 300 10 ML IJ ONE (09:02)
[2017-06-20] MEDS ORDERED: Bupivacaine HCl 0.25% PF (30 ml) Inj IJ ONE (09:02)
[2017-06-20] MEDS ORDERED: MethylPREDNISolone Depo 40 mg/ml Inj IM ONE (09:02)
[2017-06-20] MEDS ORDERED: Lactated Ringer's 1,000 ML IV ONE (09:02)
[2017-06-20] MEDS ORDERED: HYDROmorphone 0.5 mg/0.5 ml ISec IVP PRN (09:19)
--- NOTE | 2017-06-20 11:52 | RAD ---
PROCEDURE: Pain management procedure with fluoroscopic guidance HISTORY: Intractable back pain COMPARISON: None TECHNIQUE: Standard protocol for this study/examination. FINDINGS: Total fluoroscopic time (continuous mode) utilized during the procedure: 10.6 seconds. Submitted images from the current procedure: 5.0 IMPRESSION: Less than 1 hr fluoroscopic time utilized during performance of the procedure.
[2017-06-20] MEDS: Sodium Chloride 0.9% 1,000 ML IV SCH ×2 (12:50→21:51)
--- NOTE | 2017-06-20 14:20 | OP ---
DATE OF PROCEDURE: 06/20/2017 PREOPERATIVE DIAGNOSIS: Lumbar radiculopathy. POSTOPERATIVE DIAGNOSIS: Lumbar radiculopathy. PROCEDURE PERFORMED: Caudal epidural fluoroscopic guidance. SURGEON: Dr. Fatima. ANESTHESIOLOGIST: Dr. Krishnamurthy. ESTIMATED BLOOD LOSS: None. COMPLICATIONS: None. DESCRIPTION OF PROCEDURE: After informed consent was obtained, the patient was brought to the OR and placed on the table on prone position. All pressure points were padded and sedation was administered by Anesthesia. The lumbosacral spine was prepped with iodine x3 and draped in normal sterile fashion. X-ray was used in the AP and lateral views to identify the sacral hiatus. Using lateral view, a 20-gauge Tuohy epidural needle was advanced to puckett the sacrococcygeal ligament. There was no paresthesia during placement of the needle. After negative aspiration for heme or CSF, 2 mL of Omnipaque 300 contrast dye was used to delineate the epidural space. After negative aspiration for heme or CSF, 20 mL of 0.5% lidocaine and 0.25% bupivacaine preservative-free and 80 mg of Depo-Medrol were easily instilled. There was no paresthesia during the case. The patient was brought to stage II recovery room with bilateral lower extremity motor and sensory intact. The patient had stable vital signs and was discharged back to the floor. Margaux Fatima MD [facility]ALE[facility]enezer
--- NOTE | 2017-06-20 15:44 | CP.PCM.CON ---
History of Present Illness - History of Present Illness History of Present Illness: SPINE CONSULT Pt seen and examined. Full consult dictated. Pt w L lumbar radiculopathy. In severe pain. Possible extruded disc. Await MRI (to be done later today) Past Patient History - Infectious Disease Hx of Infectious Diseases: None - Past Medical History & Family History Past Medical History?: Yes - Past Social History Smoking Status: Vaps - CARDIAC Hx Cardiac Disorders: Yes Hx Hypercholesterolemia: Yes Hx Hypertension: Yes - PULMONARY Hx Respiratory Disorders: No - NEUROLOGICAL Hx Neurological Disorder: No - HEENT Hx HEENT Problems: No Other/Comment: wears glasses - RENAL Hx Chronic Kidney Disease: No - ENDOCRINE/METABOLIC Hx Endocrine Disorders: No - HEMATOLOGICAL/ONCOLOGICAL Hx Blood Disorders: No - INTEGUMENTARY Hx Dermatological Problems: No - MUSCULOSKELETAL/RHEUMATOLOGICAL Hx Musculoskeletal Disorders: No Hx Back Pain: Yes Hx Falls: No - GASTROINTESTINAL Hx Gastrointestinal Disorders: Yes Hx Ulcer: Yes Other/Comment: gastric ulcer with surgery - GENITOURINARY/GYNECOLOGICAL Hx Genitourinary Disorders: No - PSYCHIATRIC Hx Psychophysiologic Disorder: No Hx Substance Use: No - SURGICAL HISTORY Hx Surgeries: Yes Hx Cardiac Catheterization: Yes Other/Comment: abdominal sx - ulcer cardiac cath no stents - ANESTHESIA Hx Anesthesia: Yes Hx Anesthesia Reactions: No Hx Malignant Hyperthermia: No Meds Home Medications: Home Medication List Medication Instructions Recorded Confirmed Type oxyCODONE/Acetaminophen [Percocet 1 ea PO Q4 PRN #30 tab 06/20/17 Rx 5/325 mg Tab] Allergies/Adverse Reactions: Allergies Allergy/AdvReac Type Severity Reaction Status Date / Time No Known Allergies Allergy Verified 06/19/17 14:35 - Medications Medications: Current Medications Acetaminophen (Tylenol 325mg Tab) 325 mg PO Q6H PRN PRN Reason: Pain, Mild (1-3) Aspirin (Ecotrin) 81 mg PO DAILY [facility] Last Admin: 06/20/17 13:08 Dose: Not Given Atorvastatin Calcium (Lipitor) 20 mg PO HS [facility] Last Admin: 06/19/17 21:07 Dose: 20 mg Cyclobenzaprine HCl (Flexeril) 10 mg PO TID PRN PRN Reason: Muscle spasm Diazepam (Valium) 5 mg PO Q8H [facility] Last Admin: 06/20/17 15:38 Dose: 5 mg Enoxaparin Sodium (Lovenox) 40 mg SC DAILY [facility] PRN Reason: Protocol HCTZ/Losartan Potassium (Hyzaar 12.5 Mg-50 Mg) 1 tab PO DAILY [facility] Last Admin: 06/20/17 08:33 Dose: 1 tab Hydromorphone HCl (Dilaudid) 1 mg IVP Q3 PRN PRN Reason: Pain, severe (8-10) Last Admin: 06/20/17 10:34 Dose: 1 mg Sodium Chloride (Sodium Chloride 0.9%) 1,000 mls @ 100 mls/hr IV .Q10H [facility] Last Admin: 06/20/17 12:50 Dose: 100 mls/hr Isosorbide Mononitrate (Imdur Er) 30 mg PO DAILY [facility] Last Admin: 06/20/17 08:33 Dose: 30 mg Ketorolac Tromethamine (Toradol) 30 mg IVP Q6 PRN PRN Reason: Pain, moderate (4-7) Last Admin: 06/20/17 07:57 Dose: 30 mg Metoprolol Succinate (Toprol Xl) 50 mg PO HS [facility] Last Admin: 06/19/17 21:06 Dose: 50 mg Nitroglycerin (Nitrostat Sl Tab) 0.4 mg SL Q5MIN PRN PRN Reason: Chest Pain Nortriptyline HCl (Pamelor) 25 mg PO HS [facility] Last Admin: 06/19/17 21:07 Dose: 25 mg Ondansetron HCl (Zofran Inj) 4 mg IVP Q6 PRN PRN Reason: Nausea/Vomiting Results - Vital Signs Recent Vital Signs: Last Vital Signs Temp 98.2 F 06/20/17 12:54 Pulse 98 H 06/20/17 12:54 Resp 18 06/20/17 12:54 BP 132/83 06/20/17 12:54 Pulse Ox 98 06/20/17 12:54
--- NOTE | 2017-06-20 16:30 | CP.PCM.PN ---
Subjective - Date & Time of Evaluation Date of Evaluation: 06/20/17 Time of Evaluation: 14:00 - Subjective Subjective: Patient seen and evaluated bedside. s/p caudal epidural steroid injection today by anesthesia in OR. Still complaining of back pain and developed urinary retention post procedure. Hemodynamically stable, afebrile Objective - Vital Signs/Intake and Output Vital Signs (last 24 hours): Temp Pulse Resp BP Pulse Ox 98.4 F 67 20 141/84 98 06/20/17 16:11 06/20/17 16:11 06/20/17 16:11 06/20/17 16:11 06/20/17 16:11 Intake and Output: 06/20/17 06/20/17 06:59 18:59 Intake Total 300 Balance 300 - Medications Medications: Current Medications Acetaminophen (Tylenol 325mg Tab) 325 mg PO Q6H PRN PRN Reason: Pain, Mild (1-3) Aspirin (Ecotrin) 81 mg PO DAILY [facility] Last Admin: 06/20/17 13:08 Dose: Not Given Atorvastatin Calcium (Lipitor) 20 mg PO HS [facility] Last Admin: 06/19/17 21:07 Dose: 20 mg Cyclobenzaprine HCl (Flexeril) 10 mg PO TID PRN PRN Reason: Muscle spasm Diazepam (Valium) 5 mg PO Q8H [facility] Last Admin: 06/20/17 15:38 Dose: 5 mg Enoxaparin Sodium (Lovenox) 40 mg SC DAILY [facility] PRN Reason: Protocol HCTZ/Losartan Potassium (Hyzaar 12.5 Mg-50 Mg) 1 tab PO DAILY [facility] Last Admin: 06/20/17 08:33 Dose: 1 tab Hydromorphone HCl (Dilaudid) 1 mg IVP Q3 PRN PRN Reason: Pain, severe (8-10) Last Admin: 06/20/17 15:42 Dose: 1 mg Sodium Chloride (Sodium Chloride 0.9%) 1,000 mls @ 100 mls/hr IV .Q10H [facility] Last Admin: 06/20/17 12:50 Dose: 100 mls/hr Isosorbide Mononitrate (Imdur Er) 30 mg PO DAILY [facility] Last Admin: 06/20/17 08:33 Dose: 30 mg Ketorolac Tromethamine (Toradol) 30 mg IVP Q6 PRN PRN Reason: Pain, moderate (4-7) Last Admin: 06/20/17 07:57 Dose: 30 mg Metoprolol Succinate (Toprol Xl) 50 mg PO [facility] Last Admin: 06/19/17 21:06 Dose: 50 mg Nitroglycerin (Nitrostat Sl Tab) 0.4 mg SL Q5MIN PRN PRN Reason: Chest Pain Nortriptyline HCl (Pamelor) 25 mg PO [facility] Last Admin: 06/19/17 21:07 Dose: 25 mg Ondansetron HCl (Zofran Inj) 4 mg IVP Q6 PRN PRN Reason: Nausea/Vomiting - Constitutional Appears: Non-toxic, In Acute Distress (with pain to lower back ) - Head Exam Head Exam: ATRAUMATIC, NORMAL INSPECTION, NORMOCEPHALIC - Eye Exam Eye Exam: EOMI, Normal appearance, PERRL Pupil Exam: NORMAL ACCOMODATION - ENT Exam ENT Exam: Mucous Membranes Moist, Normal Exam - Neck Exam Neck Exam: Full ROM, Normal Inspection - Respiratory Exam Respiratory Exam: Clear to Ausculation Bilateral, NORMAL BREATHING PATTERN. absent: Rales, Rhonchi, Wheezes - Cardiovascular Exam Cardiovascular Exam: REGULAR RHYTHM, RRR, +S1, +S2. absent: JVD - GI/Abdominal Exam GI & Abdominal Exam: Soft, Normal Bowel Sounds. absent: Distended, Guarding, Tenderness, Rebound - Rectal Exam Rectal Exam: Deferred - Extremities Exam Extremities Exam: Full ROM, Normal Capillary Refill, Normal Inspection. absent : Calf Tenderness, Pedal Edema - Neurological Exam Neurological Exam: Alert, Awake, CN II-XII Intact, Oriented x3 Additional comments: moving all 4 extremities lift against gravity with pain radiating from lower back down to left leg - Psychiatric Exam Psychiatric exam: Normal Affect - Skin Skin Exam: Dry, Intact, Normal Color, Warm Assessment and Plan - Assessment and Plan (Free Text) Assessment: 51 year old male with a past medical history of hypertension, coronary artery disease with hx of cardiac catheterization,history of chronic lower back pain presented with worsening, severe back pain that radiates from lower back ,down to his left leg especially during the last 4 days. Patient states that has been lifting heavy objects at work. He was seen early in the morning in ER and was given pain medication and discharged home.When he got home the pain returned and so he came back to the ED. He had a CT of the lumbar spine which noted a disc bulge at L4-L5. He was given Toradol and Dilaudid with moderate relief. He is able to ambulate. The family noted that he was having shooting pains down the left leg. He previously denied any paresthesias or weakness in his left leg. No hx of saddle anesthesia or urinary or fecal incontinence. History was unable to be taken directly from the patient secondary to lethargy from pain medication. He was placed on observation status for control of his pain, with pain management consultation 1. Intractable lower back pain most likely secondary to L4-L5 disc bulging pain consult appreciated with anesthesia. Underwent caudal epidural steroid injection Continue Dilaudid, Percoset PRN, valium and Flexeril Will check MRI of Lumbar spine to rule out any cord compression neuro surgery consulted and case discussed 2. Urinary retention Most likely secondary to spinal anesthesia, narcotics and immobility Straight cath Monitor closely Start ambulation 3.Hypertension controlled continue home meds on statin , ASA, Metoprolol, isosorbide mononitrate , HCTZ/ losartan hold ASA for now 4.History CAD with cath -- no stents on statin, ASa, metoprolol,Losartan if surgery is considered will order ECho and call cardiology consult for preop clearance hold ASA 5. DVt prophylaxis on lovenox 4.
[2017-06-20] MEDS: Metoprolol Succinate 50 mg XL Tab PO SCH (21:52)
[2017-06-21] MEDS: HYDROmorphone 0.5 mg/0.5 ml ISec IVP PRN ×2 (01:06→04:06)
[2017-06-21 06:31] LABS: HEMATOCRIT 39.7 % (35.0-51.0); MEAN CELL VOLUME 94.1 fl (80.0-94.0); MEAN CORPUSCULAR HEMOGLOBIN 31.3 pg (27.0-31.0); MEAN CORPUSCULAR HGB CONC 33.2 g/dL (33.0-37.0); RED CELL DISTRIBUTION WIDTH 12.9 % (11.5-14.5); WHITE BLOOD COUNT 12.1 K/uL (4.8-10.8)
[2017-06-21 06:42] LABS: BLOOD UREA NITROGEN 18 mg/dl (9-20); CALCIUM 9.5 mg/dL (8.4-10.2); CARBON DIOXIDE 30 mmol/L (22-30); CHLORIDE 100 mmol/L (98-107); GFR AFRICAN-AMERICAN > 60; GLUCOSE,RANDOM 109 mg/dL (75-110); POTASSIUM 4.3 MMOL/L (3.6-5.0); SODIUM 140 mmol/l (132-148)
--- NOTE | 2017-06-21 07:40 | CON ---
DATE: 06/20/2017 REASON FOR CONSULTATION: Back and left leg pain. 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 This was on Tuesday, and Tuesday he did not have work and rested, but Tuesday when he tried to go back to work, he was unable to do anything. He left to go home and has been home ever since. He complains of severe pain in his back, which developed into pain radiating down his entire left leg as he describes it. He states he had history of back pain off and on in the past, but this is the first time he ever had the leg symptoms. He finds it difficult to sit. There was a question about his not being able to urinate, but the nurse states that he has been able to void. He denies any symptoms in the right leg. The pain is definitely increased if he coughs or sneezes. The patient was brought to the emergency room yesterday and admitted. He had a CAT scan done, which reportedly showed a disc bulge at L4-L5. He was given Toradol and Dilaudid, which seem to help a little. He was given an epidural steroid injection this morning, but does not report any relief with that. PAST MEDICAL HISTORY: Significant for hypertension, coronary artery disease. Evidently, he had a gastric ulcer in the past as well. MEDICATIONS: Listed on the chart. ALLERGIES: HE HAS NO KNOWN ALLERGIES. PAST SURGICAL HISTORY: Significant for cardiac catheterization, but no stents were placed. He also had surgery for his ulcer in the past. PHYSICAL EXAMINATION: On examination, the history was obtained with his present as well as through the phone translating device. He complains of pain in the entire left leg, although it seems to be more in the outside and back of the leg than down the front of it. He has excellent sensation to touch and strength in the right leg. Straight leg raising at about 60 degrees seems to aggravate his back pain. On the left side, straight leg raise at about 30 degrees seems to be aggravating his pain. He states he has sensation to light touch, but it is less everywhere on the left foot than on the right. He does have strength in his anterior tib and EHL, but it takes a lot of encouragement to get him to cock the ankle up compared to how easily he does it on the right side. Distal pulses are intact. No obvious clonus or Babinski's. CAT scan shows some narrowing of the upper lumbar discs, but nothing really too bad in the lower lumbar region. Again, they read it as showing a disc bulge at L4-L5. IMPRESSION: Left lumbar radiculopathy. Certainly with his questionable history of voiding or not, not be a concern that some other process is going on here. An MRI has been ordered; it is scheduled to be done some time this afternoon. We will review the films once it has been done and come back tomorrow to talk to the patient and plan accordingly, depending on the results of the study. Certainly with his straight leg raise and cross straight leg raising signs and his description of the pain, it would seem as though he has something larger than just a bulging disc, but again I think the MRI will give us much better details to what is going on here. Thank you for allowing me to participate in the care of your patient. Manny Liu MD
--- NOTE | 2017-06-21 08:39 | CP.PCM.PN ---
<Opal Velez - Last Filed: 06/21/17 13:13> Subjective - Date & Time of Evaluation Date of Evaluation: 06/21/17 Time of Evaluation: 08:39 - Subjective Subjective: 51 y/o male seen at bedside this morning for lower back pain and left hip pain with shooting sensation down the left leg. Patient states his pain has decreased since his injection yesterday but he is still experiencing it. Pt states he did not get the MRI yesterday because he was anxious and nervous, but that he will get the test done today. Pt states he was retaining urine yesterday and unable to pee but that he urinated last night and this morning normally. Pt denies any acute events overnight. Pt denies any F/C/N/V/CP/SOB. Objective - Vital Signs/Intake and Output Vital Signs (last 24 hours): Temp Pulse Resp BP Pulse Ox 98.0 F 80 20 139/90 97 06/21/17 07:30 06/21/17 07:30 06/21/17 07:30 06/21/17 07:30 06/21/17 07:30 - Medications Medications: Current Medications Acetaminophen (Tylenol 325mg Tab) 325 mg PO Q6H PRN PRN Reason: Pain, Mild (1-3) Atorvastatin Calcium (Lipitor) 20 mg PO HS [facility] Last Admin: 06/20/17 21:52 Dose: 20 mg Cyclobenzaprine HCl (Flexeril) 10 mg PO TID [facility] Dexamethasone (Decadron) 4 mg PO Q8 [facility] Diazepam (Valium) 5 mg PO Q8H [facility] Last Admin: 06/21/17 07:24 Dose: 5 mg Enoxaparin Sodium (Lovenox) 40 mg SC DAILY [facility] PRN Reason: Protocol HCTZ/Losartan Potassium (Hyzaar 12.5 Mg-50 Mg) 1 tab PO DAILY [facility] Last Admin: 06/20/17 08:33 Dose: 1 tab Hydromorphone HCl (Dilaudid) 1 mg IVP Q3 PRN PRN Reason: Pain, severe (8-10) Last Admin: 06/21/17 07:36 Dose: 1 mg Sodium Chloride (Sodium Chloride 0.9%) 1,000 mls @ 100 mls/hr IV .Q10H [facility] Last Admin: 06/20/17 21:51 Dose: 100 mls/hr Dexamethasone 10 mg/ Sodium (Chloride) 51 mls @ 102 mls/hr IVPB STAT STA Stop: 06/21/17 08:05 Isosorbide Mononitrate (Imdur Er) 30 mg PO DAILY [facility] Last Admin: 06/20/17 08:33 Dose: 30 mg Ketorolac Tromethamine (Toradol) 30 mg IVP Q6 PRN PRN Reason: Pain, moderate (4-7) Last Admin: 06/20/17 07:57 Dose: 30 mg Metoprolol Succinate (Toprol Xl) 50 mg PO [facility] Last Admin: 06/20/17 21:52 Dose: 50 mg Nitroglycerin (Nitrostat Sl Tab) 0.4 mg SL Q5MIN PRN PRN Reason: Chest Pain Nortriptyline HCl (Pamelor) 25 mg PO [facility] Last Admin: 06/20/17 21:56 Dose: 25 mg Ondansetron HCl (Zofran Inj) 4 mg IVP Q6 PRN PRN Reason: Nausea/Vomiting Pantoprazole Sodium (Protonix Ec Tab) 40 mg PO DAILY [facility] - Labs Labs: 06/21/17 05:50 06/21/17 05:50 - Constitutional Appears: Well, Non-toxic, No Acute Distress - Head Exam Head Exam: ATRAUMATIC, NORMAL INSPECTION, NORMOCEPHALIC - Eye Exam Eye Exam: EOMI, Normal appearance, PERRL Pupil Exam: PERRL - ENT Exam ENT Exam: Mucous Membranes Moist - Neck Exam Additional comments: supple, non-tender, no JVD - Respiratory Exam Respiratory Exam: NORMAL BREATHING PATTERN Additional comments: no wheezing, no rales - Cardiovascular Exam Cardiovascular Exam: REGULAR RHYTHM, +S1, +S2 - GI/Abdominal Exam GI & Abdominal Exam: Soft, Normal Bowel Sounds - Extremities Exam Extremities Exam: Tenderness Additional comments: tenderness to left hip on palpation - Back Exam Additional comments: mild tenderness upon palpation to lower back, decreased since yesterday's visit - Neurological Exam Neurological Exam: Alert, Awake, Oriented x3 - Psychiatric Exam Psychiatric exam: Normal Affect, Normal Mood - Skin Skin Exam: Intact, Normal Color Assessment and Plan (1) Back pain Assessment & Plan: Pain likely secondary to L4-L5 disc bulge pain consult appreciated with anesthesia Pt underwent caudal epidural steroid injection on 06/20 Continue pain management with Dilaudid, Percoset PRN, valium and Flexeril Flexeril dose modified to 10mg po TID (not prn) MRI of lumbar spine pending to r/o cord compression Neuro surgery consulted and on board Await results of MRI prior to further intervention Aspirin stopped at this time should pt require surgical intervention Started Decadron x 1 dose IV followed by 4mg PO q8h Started Protonix 40mg po daily to protect GI Status: Acute (2) Hypertension Assessment & Plan: controlled at this time continue home meds on statin , ASA, Metoprolol, isosorbide mononitrate , HCTZ/ losartan hold ASA for now Status: Chronic (3) DVT prophylaxis Assessment & Plan: On Lovenox Status: Acute (4) Urinary retention Assessment & Plan: Most likely secondary to spinal anesthesia, narcotics and immobility Straight cath placed Pt voiding without difficulty today Continue to monitor Status: Acute (5) History of coronary artery disease Assessment & Plan: with catheterization -- no stents Pt currently on statin, ASA, metoprolol, Losartan ASA held at this time due to possible surgery if surgery is considered will also order Echo and call cardiology consult for preop clearance Status: Chronic <Linn Santo - Last Filed: 06/21/17 16:16> Objective - Vital Signs/Intake and Output Vital Signs (last 24 hours): Temp Pulse Resp BP Pulse Ox 98 F 80 20 139/90 97 06/21/17 10:00 06/21/17 10:00 06/21/17 10:00 06/21/17 10:00 06/21/17 10:00 - Medications Medications: Current Medications Acetaminophen (Tylenol 325mg Tab) 325 mg PO Q6H PRN PRN Reason: Pain, Mild (1-3) Atorvastatin Calcium (Lipitor) 20 mg PO HS [facility] Last Admin: 06/20/17 21:52 Dose: 20 mg Cyclobenzaprine HCl (Flexeril) 10 mg PO TID [facility] Last Admin: 06/21/17 13:33 Dose: 10 mg Dexamethasone (Decadron) 4 mg PO Q8 [facility] Diazepam (Valium) 5 mg PO Q8H [facility] Last Admin: 06/21/17 07:24 Dose: 5 mg Enoxaparin Sodium (Lovenox) 40 mg SC DAILY [facility] PRN Reason: Protocol HCTZ/Losartan Potassium (Hyzaar 12.5 Mg-50 Mg) 1 tab PO DAILY [facility] Last Admin: 06/21/17 09:25 Dose: 1 tab Hydromorphone HCl (Dilaudid) 1 mg IVP Q3 PRN PRN Reason: Pain, severe (8-10) Last Admin: 06/21/17 13:33 Dose: 1 mg Sodium Chloride (Sodium Chloride 0.9%) 1,000 mls @ 100 mls/hr IV .Q10H [facility] Last Admin: 06/20/17 21:51 Dose: 100 mls/hr Isosorbide Mononitrate (Imdur Er) 30 mg PO DAILY [facility] Last Admin: 06/21/17 09:24 Dose: 30 mg Ketorolac Tromethamine (Toradol) 30 mg IVP Q6 PRN PRN Reason: Pain, moderate (4-7) Last Admin: 06/20/17 07:57 Dose: 30 mg Metoprolol Succinate (Toprol Xl) 50 mg PO HS [facility] Last Admin: 06/20/17 21:52 Dose: 50 mg Nitroglycerin (Nitrostat Sl Tab) 0.4 mg SL Q5MIN PRN PRN Reason: Chest Pain Nortriptyline HCl (Pamelor) 25 mg PO HS [facility] Last Admin: 06/20/17 21:56 Dose: 25 mg Ondansetron HCl (Zofran Inj) 4 mg IVP Q6 PRN PRN Reason: Nausea/Vomiting Pantoprazole Sodium (Protonix Ec Tab) 40 mg PO DAILY [facility] Last Admin: 06/21/17 09:25 Dose: 40 mg - Labs Labs: 06/21/17 05:50 06/21/17 05:50 Attending/Attestation - Attestation I have personally seen and examined this patient.: Yes I have fully participated in the care of the patient.: Yes I have reviewed all pertinent clinical information, including history, physical exam and plan: Yes Notes (Text): Intractable Low Back Pain sec to Lumbar Radiculopathy - awaiting MRI of LS Spine - Neurosurgery consulted - Pain mgt
[2017-06-21] MEDS ORDERED: Dexamethasone 10 MG in Sodium Chloride 0.9% 50 ML IVPB STA (08:50)
[2017-06-21] MEDS: Pantoprazole 40 mg EC Tab PO SCH (09:25)
[2017-06-21] MEDS: HCTZ/Losartan 12.5/50 Tab PO SCH (09:25)
[2017-06-21] MEDS ORDERED: HYDROmorphone 0.5 mg/0.5 ml ISec IVP STA (16:58)
[2017-06-21] MEDS: Metoprolol Succinate 50 mg XL Tab PO SCH (21:18)
[2017-06-22 06:33] LABS: BLOOD UREA NITROGEN 18 mg/dl (9-20); CALCIUM 10.2 mg/dL (8.4-10.2); CARBON DIOXIDE 26 mmol/L (22-30); CHLORIDE 99 mmol/L (98-107); GFR AFRICAN-AMERICAN > 60; GLUCOSE,RANDOM 122 mg/dL (75-110); POTASSIUM 4.5 MMOL/L (3.6-5.0); SODIUM 140 mmol/l (132-148)
[2017-06-22 06:40] LABS: BASO % 0.2 % (0.0-2.0); EOS # 0.1 K/uL (0.0-0.7); EOS % 0.3 % (0.0-4.0); HEMATOCRIT 43.1 % (35.0-51.0); LYMPH # 1.2 K/uL (1.0-4.3); MEAN CELL VOLUME 92.8 fl (80.0-94.0); MEAN CORPUSCULAR HEMOGLOBIN 31.3 pg (27.0-31.0); MEAN CORPUSCULAR HGB CONC 33.7 g/dL (33.0-37.0); MEAN PLATELET VOLUME 9.7 fl (7.2-11.7); MONO # 1.6 K/uL (0.0-0.8); MONO % 9.1 % (0.0-10.0); NEUT # 14.8 K/uL (1.8-7.0); NEUT % 83.4 % (50.0-75.0); PLATELET COUNT 270 K/uL (130-400); RED CELL DISTRIBUTION WIDTH 12.6 % (11.5-14.5); WHITE BLOOD COUNT 17.7 K/uL (4.8-10.8)
[2017-06-22 07:24] LABS: PARTIAL THROMBOPLASTIN TIME 29.2 Seconds (25.6-37.1)
[2017-06-22] MEDS: HCTZ/Losartan 12.5/50 Tab PO SCH (08:33)
[2017-06-22] MEDS: Pantoprazole 40 mg EC Tab PO SCH (08:34)
[2017-06-22] MEDS ORDERED: Propofol 10 mg/ml Inj (20 ML) ONE ×3 (08:56→12:42)
[2017-06-22] MEDS ORDERED: Midazolam 2 MG/2 ML VIAL ONE ×2 (08:57→09:23)
[2017-06-22] MEDS ORDERED: ePHEDrine 50 mg/ml Inj ONE ×2 (09:24→13:11)
[2017-06-22] MEDS ORDERED: Labetalol 5mg/ml (4ml) ONE (09:29)
[2017-06-22 09:54] LABS: NEUTROPHIL 87 % (42-75); REACTIVE LYMPHOCYTES 4 % (0-0); TOTAL CELLS COUNTED 100
[2017-06-22] MEDS ORDERED: Phenylephrine 10 mg/ml Inj ONE (10:21)
[2017-06-22] MEDS ORDERED: Esmolol 100 mg/10ml Inj IV ONE (10:21)
[2017-06-22] MEDS ORDERED: Succinylcholine 200 mg/10 ml Inj IV ONE (11:36)
--- NOTE | 2017-06-22 11:38 | MRI ---
PROCEDURE: MR LUMBAR SPINE WITHOUT CONTRAST HISTORY: Severe L-S area Pain COMPARISON: Lumbar spine CT without contrast 06/19/2017. TECHNIQUE: Multiecho multiplanar sequences were performed through the lumbar spine without the use of intravenous contrast. FINDINGS: Lumbar curvature appears mildly straightened once again without fracture or spondylolisthesis appreciated. Overall marrow signal is remarkable only for a small benign hemangioma at the L3 vertebral body anteriorly with a larger benign hemangioma incidentally captured at the T11 vertebral body left of center. A 9 mm sclerotic finding at the left L4 pedicle is again seen likely representing a bone island. No edema related. Diffuse disc desiccation is appreciated throughout with mild disc height loss is noted L1-2 and L2-3. Conus medullaris appears normal, terminating at L1 with the visualized prevertebral paraspinal soft tissues appear diffusely unremarkable. T12-L1: No disc herniation, spinal canal stenosis or neural foraminal narrowing. L1-2: No disc herniation, spinal canal stenosis or neural foraminal narrowing. L2-3: No disc herniation or neural foraminal narrowing. Mild to moderate facet joint degenerative changes are identified symmetrically encroaching the lateral recesses. Minimal disc bulge combines with these findings to cause borderline central canal stenosis.. L3-4: No disc herniation or neural foraminal narrowing. Mild to moderate facet joint degenerative changes are identified combining with a mild generalized disc bulge symmetrically encroaching the lateral recesses and causing borderline central canal stenosis. L4-5: A moderate to severe central canal stenosis is reiterated caused by a large generalized disc bulge combined with moderate facet arthropathy and moderate right as well as moderate to severe left neural foraminal stenosis. A small left foraminal disc protrusion is difficult to exclude although the difference in neural foramina could be a function of asymmetric disc bulging. L5-S1: No disc herniation or central canal stenosis identified however mild bilateral neural foraminal stenosis appreciate on the basis of moderate facet arthropathy combined with limited disc bulging. OTHER FINDINGS: None. IMPRESSION: 1. Moderate severe central canal stenosis identified at L4-5 with a large generalized disc bulge reiterated combining with moderate facet arthropathy. Moderate right and [id number] left neural foraminal stenosis appreciated on the basis of asymmetric disc bulging versus potential limited left foraminal disc protrusion superimposed over disc bulge. 2. Multilevel degenerative disc bulging and facet arthropathy is otherwise noted on a lesser basis with borderline central canal stenoses identified at L2-3 and L3-4, concentrated at the lateral recesses symmetrically. Please see discussion above.
[2017-06-22] MEDS ORDERED: Bupivacaine HCl 0.5% PF (30 ml) Inj ONE (12:00)
[2017-06-22] MEDS ORDERED: Bupivacaine 0.25%-Epinephrine 1:200,000 (30 ml) Inj ONE (12:00)
[2017-06-22] MEDS ORDERED: Sodium Chloride 0.9% 500 ML IV ONE (12:15)
--- NOTE | 2017-06-22 12:25 | CP.PCM.PN ---
Subjective - Date & Time of Evaluation Date of Evaluation: 06/22/17 Time of Evaluation: 12:18 - Subjective Subjective: SPINE Pt had MRI this morning with IV sedation administered by Anesthesia. Films were reviewed and show an extremely large herniated disc at L4-5 with thecal sac compression. There may be signal change there with interruption of flow at that level as well. Pt required jaramillo insertion due to retained bladder volume post void. Pt with evidence of probable cauda equina condition. I feel he requires urgent decompression with removal of herniated disc. Pt was still under sedation from his MRI so films were reviewed and procedure was explained to pt's brother who then translated for pt's , who does not speak Swedish. No guarantees were offered nor implied, but feel this is best chance to alleviate pt's pain and hopefully regain neuro fct. Family agreed and signed consent on his behalf. Objective - Vital Signs/Intake and Output Vital Signs (last 24 hours): Temp Pulse Resp BP Pulse Ox 98.1 F 100 H 18 138/90 100 06/22/17 09:00 06/22/17 09:00 06/22/17 09:00 06/22/17 09:00 06/22/17 09:00 Intake and Output: 06/22/17 06/22/17 06:59 18:59 Output Total 1750 Balance -1750 - Medications Medications: Current Medications Acetaminophen (Tylenol 325mg Tab) 325 mg PO Q6H PRN PRN Reason: Pain, Mild (1-3) Atorvastatin Calcium (Lipitor) 20 mg PO HS [facility] Last Admin: 06/21/17 21:19 Dose: 20 mg Cyclobenzaprine HCl (Flexeril) 10 mg PO TID [facility] Last Admin: 06/22/17 08:33 Dose: Not Given Dexamethasone (Decadron) 4 mg PO Q8 [facility] Last Admin: 06/22/17 08:33 Dose: Not Given Diazepam (Valium) 5 mg PO Q8H [facility] Last Admin: 06/21/17 23:38 Dose: 5 mg Enoxaparin Sodium (Lovenox) 40 mg SC DAILY [facility] PRN Reason: Protocol HCTZ/Losartan Potassium (Hyzaar 12.5 Mg-50 Mg) 1 tab PO DAILY [facility] Last Admin: 06/22/17 08:33 Dose: Not Given Hydromorphone HCl (Dilaudid) 1 mg IVP Q3 PRN PRN Reason: Pain, severe (8-10) Last Admin: 06/22/17 04:32 Dose: 1 mg Sodium Chloride (Sodium Chloride 0.9%) 1,000 mls @ 100 mls/hr IV .Q10H [facility] Last Admin: 06/20/17 21:51 Dose: 100 mls/hr Isosorbide Mononitrate (Imdur Er) 30 mg PO DAILY [facility] Last Admin: 06/22/17 08:34 Dose: Not Given Metoprolol Succinate (Toprol Xl) [address] [facility] Last Admin: 06/21/17 21:18 Dose: 50 mg Nitroglycerin (Nitrostat Sl Tab) 0.4 mg SL Q5MIN PRN PRN Reason: Chest Pain Nortriptyline HCl (Pamelor) [address] [facility] Last Admin: 06/21/17 21:19 Dose: 25 mg Ondansetron HCl (Zofran Inj) 4 mg IVP Q6 PRN PRN Reason: Nausea/Vomiting Pantoprazole Sodium (Protonix Ec Tab) 40 mg PO DAILY [facility] Last Admin: 06/22/17 08:34 Dose: Not Given - Labs Labs: 06/22/17 06:00 06/22/17 06:00 PT 11.5 Seconds (9.8-13.1) 06/22/17 06:00 INR 1.0 (0.9-1.2) 06/22/17 06:00 APTT 29.2 Seconds (25.6-37.1) 06/22/17 06:00
[2017-06-22] MEDS ORDERED: Rocuronium 10 mg/ml (5 ml) ONE (12:34)
[2017-06-22] MEDS ORDERED: Sodium Chloride 0.9% 200 ML IV ONE (12:40)
[2017-06-22] MEDS ORDERED: Absorbable Gelatin Sponge Size 100 TP ONE (13:15)
[2017-06-22] MEDS ORDERED: Thrombin Topical 5,000 IU Spray Kit TOP ONE (13:15)
[2017-06-22] MEDS ORDERED: HYDROmorphone 0.5 mg/0.5 ml ISec IVP PRN (13:22)
[2017-06-22] MEDS ORDERED: Neostigmine Methylsulfate 3mg/3ml Syringe IV ONE (13:36)
[2017-06-22] MEDS ORDERED: Neostigmine Methylsulfate 2 MG/2 ML ML IV ONE (13:36)
[2017-06-22] MEDS ORDERED: Vancomycin 1 g Inj IVPB ONE (13:40)
[2017-06-22] MEDS ORDERED: Dexamethasone 4 mg/1 ml ONE (13:41)
[2017-06-22] MEDS ORDERED: Lactated Ringer's 1,000 ML IV ONE (13:50)
[2017-06-22] MEDS: Potassium Ch 20mEq in D5-1/2NS 1,000 ML IV SCH ×2 (17:14→22:14)
[2017-06-22] MEDS ORDERED: Oxycodone/Acetaminophen 5/325 mg Tab PO PRN (17:36)
--- NOTE | 2017-06-22 17:44 | CP.PCM.PN ---
Subjective - Date & Time of Evaluation Date of Evaluation: 06/22/17 Time of Evaluation: 09:00 - Subjective Subjective: Pt seen and examined at bedside- discussed plan for MRI under sedation and possible surgery after MRI Pt has no fever denies CP no SOB no abd pain still with left lower back pain , radiating to the left leg but sl better with pain meds, able to move both lower ext no saddle anesthesia, states he has urge to urinate and defecate however noted some residual urine on bladder scan thus Sweet placed. Objective - Vital Signs/Intake and Output Vital Signs (last 24 hours): Temp Pulse Resp BP Pulse Ox 97.8 F 72 20 131/73 95 06/22/17 16:10 06/22/17 16:10 06/22/17 16:10 06/22/17 16:10 06/22/17 16:10 Intake and Output: 06/22/17 06/22/17 06:59 18:59 Intake Total 950 Output Total 1750 275 Balance -1750 675 - Medications Medications: Current Medications Acetaminophen (Tylenol 325mg Tab) 325 mg PO Q6H PRN PRN Reason: Pain, Mild (1-3) Atorvastatin Calcium (Lipitor) 20 mg PO HS [facility] Last Admin: 06/21/17 21:19 Dose: 20 mg Cyclobenzaprine HCl (Flexeril) 10 mg PO TID [facility] Last Admin: 06/22/17 17:13 Dose: 10 mg Dexamethasone (Decadron) 4 mg PO Q8 [facility] Last Admin: 06/22/17 17:13 Dose: 4 mg Diazepam (Valium) 2.5 mg PO Q12 [facility] Enoxaparin Sodium (Lovenox) 40 mg SC DAILY [facility] PRN Reason: Protocol HCTZ/Losartan Potassium (Hyzaar 12.5 Mg-50 Mg) 1 tab PO DAILY [facility] Last Admin: 06/22/17 08:33 Dose: Not Given Sodium Chloride (Sodium Chloride 0.9%) 1,000 mls @ 100 mls/hr IV .Q10H [facility] Last Admin: 06/20/17 21:51 Dose: 100 mls/hr Potassium Chloride/Dextrose/Sod Cl (Potassium Chl 20 Meq In D5-1/2ns) 1,000 mls @ 125 mls/hr IV .Q8H [facility] Last Admin: 06/22/17 17:14 Dose: 125 mls/hr Isosorbide Mononitrate (Imdur Er) 30 mg PO DAILY [facility] Last Admin: 06/22/17 08:34 Dose: Not Given Ketorolac Tromethamine (Toradol) 30 mg IVP Q6 [facility] Stop: 06/27/17 16:01 Last Admin: 06/22/17 17:16 Dose: 30 mg Meperidine HCl (Demerol) 12.5 mg IVP Q5M PRN PRN Reason: Shivering/Rigor Metoprolol Succinate (Toprol Xl) [address] [facility] Last Admin: 06/21/17 21:18 Dose: 50 mg Nitroglycerin (Nitrostat Sl Tab) 0.4 mg SL Q5MIN PRN PRN Reason: Chest Pain Nortriptyline HCl (Pamelor) [address] [facility] Last Admin: 06/21/17 21:19 Dose: 25 mg Ondansetron HCl (Zofran Inj) 4 mg IVP Q6 PRN PRN Reason: Nausea/Vomiting Oxycodone/Acetaminophen (Percocet 5/325 Mg Tab) 1 tab PO Q4 PRN PRN Reason: Pain, moderate (4-7) Stop: 06/25/17 17:37 Pantoprazole Sodium (Protonix Ec Tab) 40 mg PO DAILY [facility] Last Admin: 06/22/17 08:34 Dose: Not Given - Labs Labs: 06/22/17 06:00 06/22/17 06:00 PT 11.5 Seconds (9.8-13.1) 06/22/17 06:00 INR 1.0 (0.9-1.2) 06/22/17 06:00 APTT 29.2 Seconds (25.6-37.1) 06/22/17 06:00 - Constitutional Appears: No Acute Distress, Other (pin better controlled today) - Head Exam Head Exam: NORMAL INSPECTION, NORMOCEPHALIC - Eye Exam Eye Exam: EOMI, Normal appearance, PERRL Pupil Exam: NORMAL ACCOMODATION - ENT Exam ENT Exam: Mucous Membranes Moist, Normal External Ear Exam - Neck Exam Neck Exam: Full ROM. absent: Meningismus - Respiratory Exam Respiratory Exam: NORMAL BREATHING PATTERN. absent: Respiratory Distress - Cardiovascular Exam Cardiovascular Exam: REGULAR RHYTHM, +S1, +S2 - GI/Abdominal Exam GI & Abdominal Exam: Soft, Normal Bowel Sounds. absent: Tenderness - Extremities Exam Extremities Exam: Normal Capillary Refill. absent: Calf Tenderness, Pedal Edema Additional comments: pain on Left leg raising - Back Exam Back Exam: absent: CVA tenderness (L), CVA tenderness (R), vertebral tenderness - Neurological Exam Neurological Exam: Alert, CN II-XII Intact, Oriented x3 Neuro motor strength exam: Left Upper Extremity: 5, Right Upper Extremity: 5, Left Lower Extremity: 5, Right Lower Extremity: 5 Additional comments: no saddle anesthesia, no sensory deficit - Psychiatric Exam Psychiatric exam: Normal Affect, Normal Mood - Skin Skin Exam: Dry, Normal Color, Warm Assessment and Plan - Assessment and Plan (Free Text) Assessment: 51 year old male with a past medical history of hypertension, coronary artery disease with hx of cardiac catheterization, history of chronic lower back pain presented with worsening, severe back pain that radiates from lower back ,down to his left leg especially during the last 4 days. Patient states that has been lifting heavy objects at work. He was seen early in the morning in ER and was given pain medication and discharged home.When he got home the pain returned and so he came back to the ED. He had a CT of the lumbar spine which noted a disc bulge at L4-L5. 1. Intractable lower back pain sec to Lumbar Radiculopathy need to r/o Cauda Equina Neurosurgery consulted- Dr Liu rec MRI Pt unable to tolerate MRI procedure, cannot lay down on his back bec of pain so MRI done under sedation Pt has some urinary retention however no saddle anesthesia on exam and able to move all extremities, unclear if this is due to Opiates , sedatives given Neurosurgery planned - pt NPO in prep for surgery Pain Mgt consult appreciated with anesthesia. Underwent caudal epidural steroid injection Continue Dilaudid, PercoCet PRN, valium and Flexeril 2. Urinary retention Most likely secondary to spinal anesthesia, narcotics and immobility, however need to r/o Cauda Equina Sweet catheter placed Monitor closely 3.Hypertension controlled continue home meds on statin , ASA, Metoprolol, isosorbide mononitrate , HCTZ/ losartan hold ASA for now 4.History CAD with cath -- no stents on statin, metoprolol,Losartan hold ASA 5. DVt prophylaxis Lovenox on hold for Surgery
--- NOTE | 2017-06-22 21:22 | OP ---
PROCEDURE DATE: 06/22/2017 PREOPERATIVE DIAGNOSIS: Spinal stenosis with possible cauda equina syndrome secondary to large central herniated disc, L4-L5. POSTOPERATIVE DIAGNOSIS: Spinal stenosis with possible cauda equina syndrome secondary to large central herniated disc, L4-L5. PROCEDURE: Laminectomy L4-L5 with excision of herniated disc. SURGEON: Manny Liu MD. MOBILE PRACTICE LEAD: Tomi Pelletier MD. TYPE OF ANESTHESIA: General endotracheal tube intubation. DESCRIPTION OF PROCEDURE: The patient was brought to the operative room and general anesthesia was achieved. Intravenous antibiotics were administered and spinal cord monitoring leads were placed throughout the patient's body. Real-time monitoring was done by a dental laboratory technician in the room and remote monitoring done by a physician as well. Sequential compression boots were placed to each of the patient's legs. The patient already had an indwelling Sweet catheter. The patient was then gently transferred onto the operating table and placed prone on a Efraín frame, keeping his abdomen free from pressure anteriorly. Care was taken to protect the elbows and knees from pressure points. A Steri-Drape was used to seal off the patient's perineal region from the operative field, and his back was sterilely prepped and draped. The level of the incision was noted under fluoroscopy and the skin was sharply incised. It was taken down to subcutaneous tissue using sharp and blunt dissection. Hemostasis was achieved using electrocautery. The fascia was divided and stripped laterally off the spinous processes at the level of the facet joints. Soft tissue attachments were cleared to identify the pars at the level. Fluoroscopic view was taken with markers and we were shown to be above and below the L4-L5 disc space. Tissues were held back with angled Weitlaner retractors. A Leksell rongeur was used to remove the spinous process and thin down the L4 lamina. The laminectomy was then carried out in a [id number] fashion using Kerrison rongeurs, first in the midline and then laterally to each side. There was a great deal of thickened ligamentum helping lead to his overall stenosis. The thecal sac was gently retracted and a large broad-based central disc herniation was noted. There was a fair amount of tension on the thecal sac. The annulus was incised and free fragments of disc material removed. After this was done, the thecal sac was no longer under tension. Foraminotomies were carried out until we could easily pass a [place] tool at the L4 and L5 foramina on each side. Disc space was irrigated with antibiotic solution and no further free fragments were noted. Vancomycin powder was placed into the disc space. Pieces of Gelfoam soaked in thrombin were placed in the area to cover the exposed neural elements. The wound was then closed in layers with interrupted sutures of 0 Vicryl for the muscle and the fascia. The subcutaneous tissue was copiously irrigated with antibiotic solution and vancomycin powder was placed in the wound to help prevent any postoperative infection, given his diabetes. The subcutaneous tissue was then approximated with interrupted sutures of 2-0 Vicryl and the skin was closed with a running subcuticular suture of 3-0 Monocryl. Dermabond was used to seal the closure. Once the Dermabond was dried, the patient was gently transferred back onto his bed in the supine position. He was awaken and extubated. He was taken to recovery room in stable condition having tolerated the procedure well. No permanent electrophysiologic abnormalities were noted at the completion of the case. Estimated blood loss was 20 mL and he received 700 mL of crystalloid during the operation. Manny Liu MD
[2017-06-22] MEDS: ceFAZolin 2 GM in Sodium Chloride 0.9% 100 ML IVPB SCH (21:24)
[2017-06-22] MEDS: Metoprolol Succinate 50 mg XL Tab PO SCH (21:28)
[2017-06-23] MEDS: ceFAZolin 2 GM in Sodium Chloride 0.9% 100 ML IVPB SCH (01:31)
[2017-06-23 06:33] LABS: HEMATOCRIT 41.2 % (35.0-51.0); MEAN CELL VOLUME 93.7 fl (80.0-94.0); MEAN CORPUSCULAR HEMOGLOBIN 31.5 pg (27.0-31.0); MEAN CORPUSCULAR HGB CONC 33.6 g/dL (33.0-37.0); RED CELL DISTRIBUTION WIDTH 13.2 % (11.5-14.5); WHITE BLOOD COUNT 19.7 K/uL (4.8-10.8)
[2017-06-23 06:40] LABS: BLOOD UREA NITROGEN 20 mg/dl (9-20); CALCIUM 9.5 mg/dL (8.4-10.2); CARBON DIOXIDE 27 mmol/L (22-30); CHLORIDE 102 mmol/L (98-107); GFR AFRICAN-AMERICAN > 60; GLUCOSE,RANDOM 129 mg/dL (75-110); POTASSIUM 4.3 MMOL/L (3.6-5.0); SODIUM 141 mmol/l (132-148)
--- NOTE | 2017-06-23 08:16 | CP.PCM.PN ---
Subjective - Date & Time of Evaluation Date of Evaluation: 06/23/17 Time of Evaluation: 10:11 - Subjective Subjective: 51 y/o male seen at bedside 1 day s/p thecal sac decompression with removal of L4-L5 herniated disc. Pt had an MRI done earlier yesterday AM under sedation and was notified of his herniated disc with sac compression, at which time he decided to proceed with surgery yesterday afternoon. Today, patient is seen resting comfortably in NAD. Pt denies any acute events overnight and says that he slept well. Pt says he is not experiencing any pain at all at this time. Pt denies experiencing any shooting pains down his left leg since before his surgery. Pt has a jaramillo catheter which he has kept in place. Pt says he has been able to walk around without difficulty. Pt denies any F/C/N/V/CP/SOB. Objective - Vital Signs/Intake and Output Vital Signs (last 24 hours): Temp Pulse Resp BP Pulse Ox 97.9 F 71 20 131/82 97 06/23/17 07:23 06/23/17 07:23 06/23/17 07:23 06/23/17 07:23 06/23/17 07:23 - Medications Medications: Current Medications Acetaminophen (Tylenol 325mg Tab) 325 mg PO Q6H PRN PRN Reason: Pain, Mild (1-3) Atorvastatin Calcium (Lipitor) 20 mg PO HS [facility] Last Admin: 06/22/17 21:27 Dose: 20 mg Cyclobenzaprine HCl (Flexeril) 10 mg PO TID [facility] Last Admin: 06/22/17 17:13 Dose: 10 mg Dexamethasone (Decadron) 2 mg PO Q8 [facility] Last Admin: 06/23/17 01:33 Dose: 2 mg Diazepam (Valium) 2.5 mg PO Q12 [facility] Last Admin: 06/22/17 21:32 Dose: 2.5 mg Enoxaparin Sodium (Lovenox) 40 mg SC DAILY [facility] PRN Reason: Protocol HCTZ/Losartan Potassium (Hyzaar 12.5 Mg-50 Mg) 1 tab PO DAILY [facility] Last Admin: 06/22/17 08:33 Dose: Not Given Sodium Chloride (Sodium Chloride 0.9%) 1,000 mls @ 100 mls/hr IV .Q10H [facility] Last Admin: 06/20/17 21:51 Dose: 100 mls/hr Isosorbide Mononitrate (Imdur Er) 30 mg PO DAILY [facility] Last Admin: 06/22/17 08:34 Dose: Not Given Ketorolac Tromethamine (Toradol) 30 mg IVP Q6 [facility] Stop: 06/27/17 16:01 Last Admin: 06/23/17 03:46 Dose: 30 mg Meperidine HCl (Demerol) 12.5 mg IVP Q5M PRN PRN Reason: Shivering/Rigor Metoprolol Succinate (Toprol Xl) 50 mg PO [facility] Last Admin: 06/22/17 21:28 Dose: 50 mg Nitroglycerin (Nitrostat Sl Tab) 0.4 mg SL Q5MIN PRN PRN Reason: Chest Pain Nortriptyline HCl (Pamelor) 25 mg PO [facility] Last Admin: 06/22/17 21:28 Dose: 25 mg Ondansetron HCl (Zofran Inj) 4 mg IVP Q6 PRN PRN Reason: Nausea/Vomiting Oxycodone/Acetaminophen (Percocet 5/325 Mg Tab) 1 tab PO Q4 PRN PRN Reason: Pain, moderate (4-7) Stop: 06/25/17 17:37 Pantoprazole Sodium (Protonix Ec Tab) 40 mg PO DAILY [facility] Last Admin: 06/22/17 08:34 Dose: Not Given - Labs Labs: 06/23/17 05:50 06/23/17 05:50 PT 11.5 Seconds (9.8-13.1) 06/22/17 06:00 INR 1.0 (0.9-1.2) 06/22/17 06:00 APTT 29.2 Seconds (25.6-37.1) 06/22/17 06:00 - Constitutional Appears: Well, Non-toxic, No Acute Distress - Head Exam Head Exam: ATRAUMATIC, NORMAL INSPECTION, NORMOCEPHALIC - Eye Exam Eye Exam: EOMI, Normal appearance, PERRL Pupil Exam: NORMAL ACCOMODATION, PERRL - ENT Exam ENT Exam: Mucous Membranes Moist - Neck Exam Neck Exam: Full ROM Additional comments: supple, non tender, no JVD - Respiratory Exam Respiratory Exam: NORMAL BREATHING PATTERN Additional comments: no wheezing, no rales, no respiratory distress - Cardiovascular Exam Cardiovascular Exam: REGULAR RHYTHM, +S1, +S2 Additional comments: no murmur, no JVD, no gallop - GI/Abdominal Exam GI & Abdominal Exam: Soft, Normal Bowel Sounds Additional comments: no tenderness - Rectal Exam Rectal Exam: Deferred - Extremities Exam Extremities Exam: Normal Capillary Refill, Normal Inspection Additional comments: no tenderness elicited upon palpation of L hip - Neurological Exam Neurological Exam: Alert, Awake, Oriented x3 - Psychiatric Exam Psychiatric exam: Normal Affect, Normal Mood - Skin Skin Exam: Intact, Normal Color Additional comments: Surgical bandage remains intact to lower back with no strikethrough noted. Assessment and Plan (1) Back pain Status: Acute (2) Hypertension Assessment & Plan: Continue with home meds on Statin, ASA, Metoprolol, isosorbide mononitrate, HCTZ/ losartan ASA held prior to surgery Status: Chronic (3) DVT prophylaxis Assessment & Plan: Lovenox on hold prior to surgery Status: Acute (4) Urinary retention Assessment & Plan: Jaramillo catheter in place Removed jaramillo at this time Will monitor urinary output Status: Acute (5) History of coronary artery disease Assessment & Plan: With catheterization; no stents on statin, metoprolol, Losartan ASA held Status: Chronic
[2017-06-23] MEDS: HCTZ/Losartan 12.5/50 Tab PO SCH (08:28)
[2017-06-23] MEDS: Pantoprazole 40 mg EC Tab PO SCH (08:29)
--- NOTE | 2017-06-23 13:13 | CP.PCM.DIS ---
Provider - Provider Date of Admission: 06/21/17 10:42 Attending physician: Kwesi Langley DO Primary care physician: Dr Murali Ziegler Consults: Neurosurgery consult PT consult anesthesiology consult Time Spent in preparation of Discharge (in minutes): 20 Hospital Course - Lab Results Lab Results: Most Recent Lab Values WBC 19.7 K/uL (4.8-10.8) H 06/23/17 05:50 RBC 4.40 Mil/uL (4.40-5.90) 06/23/17 05:50 Hgb 13.8 g/dL (12.0-18.0) 06/23/17 05:50 Hct 41.2 % (35.0-51.0) 06/23/17 05:50 MCV 93.7 fl (80.0-94.0) 06/23/17 05:50 MCH 31.5 pg (27.0-31.0) H 06/23/17 05:50 MCHC 33.6 g/dL (33.0-37.0) 06/23/17 05:50 RDW 13.2 % (11.5-14.5) 06/23/17 05:50 Plt Count 228 K/uL (130-400) 06/23/17 05:50 MPV 9.7 fl (7.2-11.7) 06/22/17 06:00 Neut % (Auto) 83.4 % (50.0-75.0) H 06/22/17 06:00 Lymph % (Auto) 7.0 % (20.0-40.0) L 06/22/17 06:00 [place] % (Auto) 9.1 % (0.0-10.0) 06/22/17 06:00 Eos % (Auto) 0.3 % (0.0-4.0) 06/22/17 06:00 Baso % (Auto) 0.2 % (0.0-2.0) 06/22/17 06:00 Neut # 14.8 K/uL (1.8-7.0) H 06/22/17 06:00 Lymph # 1.2 K/uL (1.0-4.3) 06/22/17 06:00 [place] # 1.6 K/uL (0.0-0.8) H 06/22/17 06:00 Eos # 0.1 K/uL (0.0-0.7) 06/22/17 06:00 Baso # 0.0 K/uL (0.0-0.2) 06/22/17 06:00 Neutrophils % (Manual) 87 % (42-75) H 06/22/17 06:00 Band Neutrophils % 1 % (0-2) 06/22/17 06:00 Lymphocytes % (Manual) 2 % (20-50) L 06/22/17 06:00 Reactive Lymphs % 4 % (0-0) H 06/22/17 06:00 Monocytes % (Manual) 6 % (0-10) 06/22/17 06:00 Platelet Estimate Normal (NORMAL) 06/22/17 06:00 RBC Morphology Normal (NORMAL) 06/22/17 06:00 PT 11.5 Seconds (9.8-13.1) 06/22/17 06:00 INR 1.0 (0.9-1.2) 06/22/17 06:00 APTT 29.2 Seconds (25.6-37.1) 06/22/17 06:00 Sodium 141 mmol/l (132-148) 06/23/17 05:50 Potassium 4.3 MMOL/L (3.6-5.0) 06/23/17 05:50 Chloride 102 mmol/L (98-107) 06/23/17 05:50 Carbon Dioxide 27 mmol/L (22-30) 06/23/17 05:50 Anion Gap 17 (10-20) 06/23/17 05:50 BUN 20 mg/dl (9-20) 06/23/17 05:50 Creatinine 0.8 mg/dL (0.8-1.5) 06/23/17 05:50 Est GFR ( Amer) > 60 06/23/17 05:50 Est GFR (Non-Af Amer) > 60 06/23/17 05:50 Random Glucose 129 mg/dL (75-110) H 06/23/17 05:50 Calcium 9.5 mg/dL (8.4-10.2) 06/23/17 05:50 Blood Type O POSITIVE 06/22/17 06:00 Blood Type Confirm O POSITIVE 06/22/17 07:10 Antibody Screen Negative 06/22/17 06:00 BBK History Checked No verified bt 06/22/17 06:00 - Hospital Course Hospital Course: 51 year old male with a past medical history of hypertension, coronary artery disease with hx of cardiac catheterization, history of chronic lower back pain presented with worsening, severe back pain that radiates from lower back ,down to his left leg especially during the last 4 days. Patient stated that had been lifting heavy objects at work. He was seen early in the morning in ER and was given pain medication and discharged home.When he got home the pain returned and so he came back to the ED. He had a CT of the lumbar spine which noted a disc bulge at L4-L5.He was admitted in med/ surg, started on Flexeril, Valium, Percoset and dilaudid PRN .pain management was consulted and patient underwent caudal epidural steroid injection with no improvement of pain . Neurosurgery was consulted . MRI L-S spine was ordered but patient was unable to lie flat despite being heavily medicated .MRI L-s spine performed under sedation showed : 1. Moderate severe central canal stenosis identified at L4-5 with a large generalized disc bulge reiterated combining with moderate facet arthropathy. Moderate right and [id number] left neural foraminal stenosis appreciated on the basis of asymmetric disc bulging versus potential limited left foraminal disc protrusion superimposed over disc bulge. 2. Multilevel degenerative disc bulging and facet arthropathy is otherwise noted on a lesser basis with borderline central canal stenoses identified at L2- 3 and L3-4, concentrated at the lateral recesses symmetrically. Please see discussion above. Patient also developed urinary retention while in hospital .Given the MRI findings and clinical scenario of urinary retention with suspicion for cauda equina syndrome , he was taken to OR and underwent L4-l5 laminectomty and discectomy Post op patient doing well, able to ambulate , denies any pain .jaramillo cather removed and started on Flomax Discussed with Pt and neurosurgery Will discharge patient home.[id number] up with neurosurgeon Dr. Liu in 1 week Avoid heavy lifting 1. Intractable lower back pain sec to spinal stenosis and possible cauda equina syndrome due to L4-l5 centrally herniated disc s/p caudal epidural steroid injection with no improvement Neurosurgery consulted- Dr Liu Pt unable to tolerate MRI procedure, cannot lay down on his back bec of pain so MRI done under sedation Pt had some urinary retention however no saddle anesthesia on exam and able to move all extremities, unclear if this is due to Opiates ,or cauda equina Underwent laminectomy with discectomy L4-L5 Will d/c home 2. Urinary retention Most likely secondary to spinal anesthesia, narcotics and immobility, however could not rule out Cauda Equina s/p Laminectomy and discectomy Jaramillo catheter removed Started Flomax 3.Hypertension controlled continue home meds on statin , ASA, Metoprolol, isosorbide mononitrate , HCTZ/ losartan can resume ASA after discharge 4.History CAD with cath -- no stents on statin, metoprolol,Losartan hold ASA 5. DVt prophylaxis SCD ambulatory 6. Leukocytosis Steroid induced Discharge Exam - Head Exam Head Exam: ATRAUMATIC, NORMAL INSPECTION, NORMOCEPHALIC - Eye Exam Eye Exam: EOMI, Normal appearance, PERRL Pupil Exam: NORMAL ACCOMODATION - ENT Exam ENT Exam: Mucous Membranes Moist, Normal Exam - Neck Exam Neck exam: Full Rom, Normal Inspection - Respiratory Exam Respiratory Exam: Clear to PA & Lateral, NORMAL BREATHING PATTERN. absent: Rales, Rhonchi, Wheezes - Cardiovascular Exam Cardiovascular Exam: REGULAR RHYTHM, RRR, +S1, +S2. absent: JVD - GI/Abdominal Exam GI & Abdominal Exam: Normal Bowel Sounds, Soft. absent: Distended, Guarding, Rebound, Tenderness - Rectal Exam Rectal Exam: Deferred - Extremities Exam Extremities exam: normal capillary refill, normal inspection, pedal pulses present - Back Exam Back exam: NORMAL INSPECTION - Neurological Exam Neurological exam: Alert, CN II-XII Intact, Oriented x3, Reflexes Normal - Psychiatric Exam Psychiatric exam: Normal Affect, Normal Mood - Skin Skin Exam: Dry, Intact, Normal Color, Warm Discharge Plan - Discharge Medications Prescriptions: Docusate Sodium [Colace] 100 mg PO BID #20 capsule oxyCODONE/Acetaminophen [Percocet 5/325 mg Tab] 1 ea PO Q4 PRN #30 tab PRN Reason: Pain, Severe (8-10) Tamsulosin HCl [Flomax] 0.4 mg PO DAILY #30 cap.er.24h - Follow Up Plan Condition: STABLE Disposition: HOME/ ROUTINE Patient education suggested?: Yes Instructions: Lumbar Radiculopathy (GEN), Epidural Anesthesia (DC), Laminectomy (DC), Lumbar Discectomy (DC) Additional Instructions: follow up with Dr Liu in 1 week Referrals: Manny Liu MD [Staff Provider] -
--- NOTE | 2017-06-23 14:39 | CP.PCM.PN ---
Subjective - Date & Time of Evaluation Date of Evaluation: 06/23/17 Time of Evaluation: 14:37 - Subjective Subjective: SPINE - POD #1 Pt resting in bed, smiling! According to nursing he has been ambulating, and has no more c/o pain in legs. Has not voided yet. Sweet was removed 4 hrs ago. OK to d/c pt to home after he has voided. Will f/u in office in 2 weeks. Objective - Vital Signs/Intake and Output Vital Signs (last 24 hours): Temp Pulse Resp BP Pulse Ox 97.9 F 71 20 131/82 97 06/23/17 07:23 06/23/17 07:23 06/23/17 07:23 06/23/17 07:23 06/23/17 07:23 - Medications Medications: Current Medications Acetaminophen (Tylenol 325mg Tab) 325 mg PO Q6H PRN PRN Reason: Pain, Mild (1-3) Atorvastatin Calcium (Lipitor) 20 mg PO HS [facility] Last Admin: 06/22/17 21:27 Dose: 20 mg Cyclobenzaprine HCl (Flexeril) 10 mg PO TID [facility] Last Admin: 06/23/17 12:38 Dose: 10 mg Dexamethasone (Decadron) 2 mg PO Q8 [facility] Last Admin: 06/23/17 08:27 Dose: 2 mg Diazepam (Valium) 2.5 mg PO Q12 [facility] Last Admin: 06/23/17 08:33 Dose: 2.5 mg Enoxaparin Sodium (Lovenox) 40 mg SC DAILY [facility] PRN Reason: Protocol HCTZ/Losartan Potassium (Hyzaar 12.5 Mg-50 Mg) 1 tab PO DAILY [facility] Last Admin: 06/23/17 08:28 Dose: 1 tab Sodium Chloride (Sodium Chloride 0.9%) 1,000 mls @ 100 mls/hr IV .Q10H [facility] Last Admin: 06/20/17 21:51 Dose: 100 mls/hr Isosorbide Mononitrate (Imdur Er) 30 mg PO DAILY [facility] Last Admin: 06/23/17 08:28 Dose: 30 mg Ketorolac Tromethamine (Toradol) 30 mg IVP Q6 [facility] Stop: 06/27/17 16:01 Last Admin: 06/23/17 09:10 Dose: 30 mg Meperidine HCl (Demerol) 12.5 mg IVP Q5M PRN PRN Reason: Shivering/Rigor Metoprolol Succinate (Toprol Xl) 50 mg PO HS [facility] Last Admin: 06/22/17 21:28 Dose: 50 mg Nitroglycerin (Nitrostat Sl Tab) 0.4 mg SL Q5MIN PRN PRN Reason: Chest Pain Nortriptyline HCl (Pamelor) 25 mg PO HS [facility] Last Admin: 06/22/17 21:28 Dose: 25 mg Ondansetron HCl (Zofran Inj) 4 mg IVP Q6 PRN PRN Reason: Nausea/Vomiting Oxycodone/Acetaminophen (Percocet 5/325 Mg Tab) 1 tab PO Q4 PRN PRN Reason: Pain, moderate (4-7) Stop: 06/25/17 17:37 Pantoprazole Sodium (Protonix Ec Tab) 40 mg PO DAILY [facility] Last Admin: 06/23/17 08:29 Dose: 40 mg Tamsulosin HCl (Flomax) 0.4 mg PO DAILY [facility] Last Admin: 06/23/17 12:38 Dose: 0.4 mg - Labs Labs: 06/23/17 05:50 06/23/17 05:50 PT 11.5 Seconds (9.8-13.1) 06/22/17 06:00 INR 1.0 (0.9-1.2) 06/22/17 06:00 APTT 29.2 Seconds (25.6-37.1) 06/22/17 06:00
[2017-06-23 16:19] VITALS: BP 126/75; PULSE 74; RESP 18; TEMP 98.1
[2017-06-23] MEDS ORDERED: ceFAZolin 2 GM in Sodium Chloride 0.9% 100 ML IVPB SCH (20:00)
[2017-06-24 07:30] VITALS: O2SAT 99
== END 2017-06-23 17:00 | disposition home or self-care (01) | DRG 758 ==
LOC: H.ER 13:18 → H.ERHOLD 13:55 → H.MEDSURG1 15:44 → OBSVTOIN 06-21 10:42
PROVIDERS: ADMIT Internal Medicine; ATTEND Internal Medicine
PROC: 3E0234Z Introduction of Serum, Toxoid and Vaccine into Muscle, Percutaneous Approach (ICD-10-PCS; 2017-06-21)
PROC: 3E0R33Z Introduction of Anti-inflammatory into Spinal Canal, Percutaneous Approach (ICD-10-PCS; 2017-06-21)
PROC: 3E0R3BZ Introduction of Anesthetic Agent into Spinal Canal, Percutaneous Approach (ICD-10-PCS; 2017-06-21)
PROC: 0SB20ZZ Excision of Lumbar Vertebral Disc, Open Approach (ICD-10-PCS; principal; 2017-06-22 12:00)
DX: M51.06 Intervertebral disc disorders with myelopathy, lumbar region (principal); G83.4 Cauda equina syndrome; I10 Essential (primary) hypertension; Z23 Encounter for immunization; I25.10 Atherosclerotic heart disease of native coronary artery without angina pectoris; Z98.61 Coronary angioplasty status; E78.00 Pure hypercholesterolemia, unspecified; E78.5 Hyperlipidemia, unspecified; F17.200 Nicotine dependence, unspecified, uncomplicated; M48.061 Spinal stenosis, lumbar region without neurogenic claudication; X50.0XXA Overexertion from strenuous movement or load, initial encounter; X50.3XXA Overexertion from repetitive movements, initial encounter; Y92.9 Unspecified place or not applicable; Y99.0 Civilian activity done for income or pay; T88.59XA Other complications of anesthesia, initial encounter; T41.3X5A Adverse effect of local anesthetics, initial encounter; R33.0 Drug induced retention of urine; T40.605A Adverse effect of unspecified narcotics, initial encounter; M51.16 Intervertebral disc disorders with radiculopathy, lumbar region